=== PATIENT | female | born 1955 | race Caucasian/White ===

== ENCOUNTER → 2018-05-03 08:27 | Outpatient (CLI) | payer OTHER, MEDICAID, SELFPAY ==
[2018-05-03 08:46] LABS: Bacteria Urine None Seen; RBC Urine None Seen (0-5/HPF); WBC Urine None Seen (0-5/HPF)
[2018-05-03 09:36] LABS: Add Manual Diff / Slide Review NO; Basophils Percent Auto 1.1 % (0-2); Hematocrit 27.3 % (36-46); Hemoglobin 9.5 g/dL (12.0-16.0); Lymphocytes Percent Auto 18.6 % (25-40); Mean Corpuscular HGB Conc 34.7 % (30-36); Mean Corpuscular Volume 89.4 fL (80-100); Monocytes Percent Auto 8.1 % (3-14); Neutrophils Absolute Auto 3500 /uL (3000-5900); Neutrophils Percent Auto 67.2 % (50-75); Platelet Count 278 X10^3/uL (150-400); Red Blood Cell Count 3.05 X10^6/uL (4.0-5.2); Red Cell Distribution Width 12.9 % (11.6-14.8); White Blood Cell Count 5.1 X10^3/uL (4.5-11.0)
[2018-05-03 09:37] LABS: Appearance Urine UA CLEAR; Bilirubin Urine UA NEGATIVE (NEGATIVE); Color Urine UA YELLOW; Glucose Urine UA NEGATIVE (Normal); Ketones Urine UA NEGATIVE (NEGATIVE); Leukocyte Esterase Urine UA NEGATIVE (NEGATIVE); Nitrite Urine UA Negative (Negative); Occult Blood Urine UA NEGATIVE (Negative); Protein Urine UA 1+ (Negative); Specific Gravity Urine UA <=1.005 (1.000-1.035); Urobilinogen Urine UA 0.2 E.U./dL (0.2)
[2018-05-03 09:41] LABS: Culture Indicated Urine Cult Not Indicated; Urine Comments Microscopic Normal
[2018-05-03 09:45] LABS: Alanine Aminotransferase 30 IU/L (9-52); Albumin 3.7 g/dL (3.5-5.0); Albumin Globulin Ratio 1.4 (1.0-2.8); Alkaline Phosphatase 82 U/L (38-126); Aspartate Aminotransferase 25 IU/L (14-36); BUN Creatinine Ratio 35.7 (6-22); Bilirubin Total 0.4 mg/dL (0.2-1.3); Blood Urea Nitrogen 50 mg/dL (7-17); Calcium 9.5 mg/dL (8.4-10.2); Carbon Dioxide 24 mmol/L (22-32); Chloride 107 mmol/L (98-107); Estimated Glomerular Filt Rate 38.2 mL/min (>60); Globulin 2.6 g/dL (1.7-4.1); Glucose 101 mg/dL (80-110); HEMOLYSIS < 15 (0-50); Sodium 139 mmol/L (137-145); Total Protein 6.3 g/dL (6.3-8.2)
[2018-05-03 14:49] LABS: Creatinine Urine Random 37.7 mg/dL; Protein (Total) Urine Random 59 mg/dL (0-12); Protein Creatinine Ratio Urine 1.56 GRAM/24H
== END ==
PROVIDERS: PCP Family Medicine; Visit Provider Specialist
DX: R80.9 Proteinuria, unspecified (principal); D64.9 Anemia, unspecified; N18.3 Chronic kidney disease, stage 3 (moderate); I10 Essential (primary) hypertension
CPT/HCPCS: 36415; 80053; 81001; 82570; 84156; 85025

== ENCOUNTER → 2018-05-31 08:06 | Outpatient (CLI) | payer OTHER, MEDICAID, SELFPAY ==
[2018-05-31 08:13] LABS: Bacteria Urine None Seen; RBC Urine None Seen (0-5/HPF); WBC Urine None Seen (0-5/HPF)
[2018-05-31 09:08] LABS: Add Manual Diff / Slide Review NO; Basophils Percent Auto 1.1 % (0-2); Hematocrit 27.6 % (36-46); Hemoglobin 9.4 g/dL (12.0-16.0); Mean Corpuscular HGB Conc 33.9 % (30-36); Mean Corpuscular Hemoglobin 30.5 PG (26-34); Mean Corpuscular Volume 89.9 fL (80-100); Monocytes Percent Auto 7.1 % (3-14); Neutrophils Absolute Auto 2900 /uL (3000-5900); Neutrophils Percent Auto 68.8 % (50-75); Platelet Count 278 X10^3/uL (150-400); Red Blood Cell Count 3.07 X10^6/uL (4.0-5.2); White Blood Cell Count 4.2 X10^3/uL (4.5-11.0)
[2018-05-31 09:10] LABS: Appearance Urine UA CLEAR; Bilirubin Urine UA NEGATIVE (NEGATIVE); Color Urine UA YELLOW; Glucose Urine UA NEGATIVE (Normal); Ketones Urine UA NEGATIVE (NEGATIVE); Leukocyte Esterase Urine UA TRACE (NEGATIVE); Nitrite Urine UA NEGATIVE (Negative); Occult Blood Urine UA TRACE-LYSED (Negative); Protein Urine UA 2+ (Negative); Specific Gravity Urine UA 1.015 (1.000-1.035); Urobilinogen Urine UA 0.2 E.U./dL (0.2)
[2018-05-31 09:16] LABS: Culture Indicated Urine Cult Not Indicated; Urine Comments Microscopic Normal
[2018-05-31 09:25] LABS: Alanine Aminotransferase 28 IU/L (9-52); Albumin Globulin Ratio 1.5 (1.0-2.8); Alkaline Phosphatase 67 U/L (38-126); Aspartate Aminotransferase 24 IU/L (14-36); BUN Creatinine Ratio 32.7 (6-22); Bilirubin Total 0.4 mg/dL (0.2-1.3); Blood Urea Nitrogen 36 mg/dL (7-17); Calcium 9.8 mg/dL (8.4-10.2); Carbon Dioxide 26 mmol/L (22-32); Chloride 107 mmol/L (98-107); Estimated Glomerular Filt Rate 50.5 mL/min (>60); Globulin 2.6 g/dL (1.7-4.1); Glucose 96 mg/dL (80-110); HEMOLYSIS < 15 (0-50); Potassium 4.6 mmol/L (3.4-5.1); Sodium 142 mmol/L (137-145); Total Protein 6.6 g/dL (6.3-8.2)
[2018-05-31 09:30] LABS: HEMOLYSIS < 15 (0-50); Iron 78 ug/dL (37-170)
[2018-05-31 09:34] LABS: Creatinine Urine Random 47.8 mg/dL; Protein (Total) Urine Random 71 mg/dL (0-12); Protein Creatinine Ratio Urine 1.48 GRAM/24H
[2018-05-31 09:42] LABS: Percent Iron Saturation 32 % (15-50); Total Iron Binding Capacity 242 ug/dL (265-497); Transferrin 197 mg/dL (206-381)
[2018-05-31 10:24] LABS: Folate 11.8 ng/mL (2.76-20.0); Vitamin B12 473 pg/mL (239-931)
== END ==
PROVIDERS: Family Provider Family Medicine; PCP Family Medicine; Visit Provider Specialist
DX: N03.2 Chronic nephritic syndrome with diffuse membranous glomerulonephritis (principal); R80.9 Proteinuria, unspecified; N18.9 Chronic kidney disease, unspecified; D63.1 Anemia in chronic kidney disease; N39.0 Urinary tract infection, site not specified
CPT/HCPCS: 36415; 80053; 81001; 82570; 82607; 82728; 82746; 83540; 83550; 84156; 85025

== ENCOUNTER → 2018-08-02 08:06 | Outpatient (CLI) | payer OTHER, MEDICAID, SELFPAY ==
[2018-08-02 08:36] LABS: Bacteria Urine None Seen; RBC Urine None Seen (0-5/HPF); WBC Urine None Seen (0-5/HPF)
[2018-08-02 09:08] LABS: Add Manual Diff / Slide Review NO; Basophils Percent Auto 0.8 % (0-2); Eosinophils Percent Auto 4.5 % (2-4); Hematocrit 30.3 % (36-46); Lymphocytes Percent Auto 14.6 % (25-40); Mean Corpuscular HGB Conc 33.1 % (30-36); Mean Corpuscular Hemoglobin 30.4 PG (26-34); Mean Corpuscular Volume 91.8 fL (80-100); Monocytes Percent Auto 4.3 % (3-14); Neutrophils Absolute Auto 4200 /uL (1500-7000); Neutrophils Percent Auto 75.8 % (50-75); Platelet Count 278 X10^3/uL (150-400); Red Cell Distribution Width 13.7 % (11.6-14.8); White Blood Cell Count 5.5 X10^3/uL (4.5-11.0)
[2018-08-02 09:14] LABS: Appearance Urine UA CLEAR; Bilirubin Urine UA NEGATIVE (NEGATIVE); Color Urine UA YELLOW; Glucose Urine UA NEGATIVE (Normal); Ketones Urine UA NEGATIVE (NEGATIVE); Leukocyte Esterase Urine UA NEGATIVE (NEGATIVE); Nitrite Urine UA NEGATIVE (Negative); Occult Blood Urine UA TRACE-LYSED (Negative); Protein Urine UA 1+ (Negative); Specific Gravity Urine UA 1.015 (1.000-1.035); Urobilinogen Urine UA 0.2 E.U./dL (0.2)
[2018-08-02 09:38] LABS: Culture Indicated Urine Cult Not Indicated
[2018-08-02 09:47] LABS: Alanine Aminotransferase 32 IU/L (9-52); Albumin 3.7 g/dL (3.5-5.0); Albumin Globulin Ratio 1.5 (1.0-2.8); Alkaline Phosphatase 82 U/L (38-126); Aspartate Aminotransferase 29 IU/L (14-36); BUN Creatinine Ratio 31.1 (6-22); Bilirubin Total 0.2 mg/dL (0.2-1.3); Blood Urea Nitrogen 28 mg/dL (7-17); Calcium 9.4 mg/dL (8.4-10.2); Carbon Dioxide 24 mmol/L (22-32); Chloride 108 mmol/L (98-107); Estimated Glomerular Filt Rate > 60.0 mL/min (>60); Globulin 2.5 g/dL (1.7-4.1); Glucose 103 mg/dL (80-110); HEMOLYSIS < 15 (0-50); Potassium 4.6 mmol/L (3.4-5.1); Sodium 140 mmol/L (137-145); Total Protein 6.2 g/dL (6.3-8.2)
[2018-08-02 10:02] LABS: Creatinine Urine Random 39.5 mg/dL; Protein (Total) Urine Random 62 mg/dL (0-12); Protein Creatinine Ratio Urine 1.56 GRAM/24H
== END ==
PROVIDERS: Family Provider Family Medicine; PCP Family Medicine; Visit Provider Specialist
DX: N18.3 Chronic kidney disease, stage 3 (moderate) (principal); D64.9 Anemia, unspecified; I10 Essential (primary) hypertension; R80.9 Proteinuria, unspecified
CPT/HCPCS: 36415; 80053; 81001; 82570; 84156; 85025

== ENCOUNTER → 2018-08-30 11:26 | Outpatient (CLI) | payer OTHER, MEDICAID, SELFPAY ==
--- NOTE | 2018-08-30 | DI.MG.S_ITS ---
BILATERAL DIGITAL SCREENING MAMMOGRAM 3D/2D WITH CAD: 08/30/2018 CLINICAL: Routine screening. Family history of breast cancer. Comparison is made to exams dated: 08/26/2013 mammogram, 07/23/2011 mammogram, and 07/02/2010 mammogram - [facility]. The tissue of both breasts is predominantly fatty. Current study was also evaluated with a Computer Aided Detection (CAD) system. There are benign calcifications in both breasts. No significant masses, calcifications, or other findings are seen in either breast. There has been no significant interval change. IMPRESSION: There is no mammographic evidence of malignancy. A 1 year screening mammogram is recommended. This exam was interpreted at Station ID: [id number]. NOTE: For mammograms, a report in lay terms will be sent to the patient. Approximately 15% of breast malignancies will not be visualized mammographically. In the management of a palpable breast mass, a negative mammogram must not discourage biopsy of a clinically suspicious lesion. Electronically Signed By: Diogenes cordon/salvador:08/30/2018 14:26:55 letter sent: Normal Exam ACR BI-RADS Category 2: Benign Finding(s) 3342F
== END ==
PROVIDERS: PCP Family Medicine; Visit Provider Family Medicine
DX: Z12.31 Encounter for screening mammogram for malignant neoplasm of breast (principal); Z80.3 Family history of malignant neoplasm of breast
CPT/HCPCS: 77063; 77067

== ENCOUNTER → 2018-10-14 08:21 | Outpatient (CLI) | payer OTHER, MEDICAID, SELFPAY ==
[2018-10-14 08:41] LABS: Bacteria Urine None Seen; WBC Urine None Seen (0-5/HPF)
[2018-10-14 09:54] LABS: Add Manual Diff / Slide Review NO; Basophils Absolute Auto 100 /uL (0-100); Basophils Percent Auto 1.5 % (0-2); Eosinophils Absolute Auto 400 /uL (0-450); Hemoglobin 10.1 g/dL (12.0-16.0); Lymphocytes Absolute Auto 1200 /uL (1100-4500); Lymphocytes Percent Auto 19.4 % (25-40); Mean Corpuscular HGB Conc 33.7 % (30-36); Mean Corpuscular Hemoglobin 30.3 PG (26-34); Mean Corpuscular Volume 89.9 fL (80-100); Monocytes Absolute Auto 300 /uL (0-900); Neutrophils Absolute Auto 4000 /uL (1500-7000); Neutrophils Percent Auto 68.1 % (50-75); Platelet Count 367 X10^3/uL (150-400); Red Blood Cell Count 3.34 X10^6/uL (4.0-5.2); Red Cell Distribution Width 12.8 % (11.6-14.8); White Blood Cell Count 5.9 X10^3/uL (4.5-11.0)
[2018-10-14 10:11] LABS: Appearance Urine UA CLEAR; Bilirubin Urine UA NEGATIVE (NEGATIVE); Color Urine UA YELLOW; Glucose Urine UA NEGATIVE (Negative); Ketones Urine UA NEGATIVE (NEGATIVE); Leukocyte Esterase Urine UA NEGATIVE (NEGATIVE); Nitrite Urine UA NEGATIVE (Negative); Occult Blood Urine UA TRACE-INTACT (Negative); Protein Urine UA TRACE (Negative); Urobilinogen Urine UA 0.2 E.U./dL (0.2); pH Urine UA 5.5 (4.5-8.0)
[2018-10-14 10:16] LABS: Alanine Aminotransferase 66 IU/L (9-52); Albumin 3.6 g/dL (3.5-5.0); Albumin Globulin Ratio 1.5 (1.0-2.8); Alkaline Phosphatase 136 U/L (38-126); Aspartate Aminotransferase 30 IU/L (14-36); Bilirubin Total 0.2 mg/dL (0.2-1.3); Blood Urea Nitrogen 30 mg/dL (7-17); Carbon Dioxide 25 mmol/L (22-32); Chloride 104 mmol/L (98-107); Estimated Glomerular Filt Rate 56.2 mL/min (>60); Globulin 2.4 g/dL (1.7-4.1); Glucose 127 mg/dL (80-110); HEMOLYSIS < 15 (0-50); Potassium 4.6 mmol/L (3.4-5.1); Sodium 137 mmol/L (137-145)
[2018-10-14 10:17] LABS: Amorphous Sediment Urine 1+; Culture Indicated Urine Cult Not Indicated; RBC Urine 0-1/HPF (0-5/HPF)
[2018-10-14 10:36] LABS: Creatinine Urine Random 42.2 mg/dL; Protein (Total) Urine Random 50 mg/dL (0-12); Protein Creatinine Ratio Urine 1.18 GRAM/24H
== END ==
PROVIDERS: PCP Family Medicine; Visit Provider Specialist
DX: N18.3 Chronic kidney disease, stage 3 (moderate) (principal); I10 Essential (primary) hypertension; R80.9 Proteinuria, unspecified; D64.9 Anemia, unspecified
CPT/HCPCS: 36415; 80053; 81001; 82570; 84156; 85025

== ENCOUNTER → 2018-11-08 08:01 | Outpatient (CLI) | payer OTHER, MEDICAID, SELFPAY ==
--- NOTE | 2018-11-08 | DI.MRI.S_ITS ---
PROCEDURE: MR KNEE LT WO CON INDICATIONS: Unilateral primary osteoarthritis, left knee TECHNIQUE: Noncontrast sagittal PD fast spin echo and T2 fast spin echo with fat saturation, sagittal 3-D FLASH with fat saturation; coronal T1 spin echo and PD fast spin echo with fat saturation, and axial PD fast spin echo with fat saturation through the knee. COMPARISON: [facility], MR, KNEE WITHOUT CONTRAST, 02/15/2014, 10:36. FINDINGS: Image quality: Excellent. Menisci: There is medial and lateral extrusion. There is complex tear of the medial meniscus involving the body and posterior horn extending into the root ligament. There are several meniscal cyst adjacent to the posterior horn of the medial meniscus. There is degenerative tear of the lateral meniscus. Cruciate ligaments: The anterior cruciate ligament is torn, likely chronic. The posterior cruciate ligaments appears thickened but intact. Medial structures: The medial collateral ligament appears intact. The posterior oblique ligament, semimembranosus tendon insertions, oblique popliteal ligament, and meniscocapsular junction appear intact. Visualized portions of the pes anserinus tendons appear normal. No abnormal bursal fluid. Lateral structures: The lateral collateral ligament, long and short heads of the biceps femoris tendon appear intact. The popliteus tendon appears normal; the popliteofibular ligament appears intact. The posterosuperior and anteroinferior popliteomeniscal fascicles appear intact. The arcuate and fabellofibular ligaments appear intact, on either side of the lateral inferior geniculate artery. Iliotibial band appears normal. Anterior structures: The quadriceps and patellar tendons appear intact. Patellar alignment is normal. No femoral trochlear dysplasia or ventral trochlear prominence. No edema in the infrapatellar fat pad. Bones and cartilage: No bone marrow contusions or fractures. Severe tricompartmental cartilage loss and degeneration. There is marrow edema in the medial femoral condyle and medial tibial plateau likely sequelae of [id number]. Joint space: There is small knee joint effusion. A moderate sized, multilocular complex synovial cyst is noted in the posterior knee joint. Normal appearing synovial plicae are incidentally noted. IMPRESSION: 1. 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 2. Complex tear of the medial meniscus involving the body and posterior horn extending to the root ligament. 3. Degenerative tear of the lateral meniscus. 4. Severe tricompartmental cartilage loss. 5. Complex, multilocular synovial cyst posterior to the knee joint. Dictated by: Donna Sainz M.D. on 11/08/2018 at 9:55 Approved by: Donna Sainz M.D. on 11/08/2018 at 13:25
== END ==
PROVIDERS: PCP Family Medicine; Visit Provider Orthopaedic Surgery
DX: M17.12 Unilateral primary osteoarthritis, left knee (principal); S83.232A Complex tear of medial meniscus, current injury, left knee, initial encounter; S83.282A Other tear of lateral meniscus, current injury, left knee, initial encounter; M71.22 Synovial cyst of popliteal space [Baker], left knee
CPT/HCPCS: 73721

== ENCOUNTER → 2018-12-06 10:37 | Outpatient (CLI) | payer OTHER, MEDICAID, SELFPAY ==
[2018-12-06 10:46] LABS: Bacteria Urine None Seen; RBC Urine None Seen (0-5/HPF); WBC Urine None Seen (0-5/HPF)
[2018-12-06 10:56] LABS: Appearance Urine UA CLEAR; Bilirubin Urine UA NEGATIVE (NEGATIVE); Color Urine UA YELLOW; Glucose Urine UA NEGATIVE (Negative); Ketones Urine UA NEGATIVE (NEGATIVE); Leukocyte Esterase Urine UA NEGATIVE (NEGATIVE); Nitrite Urine UA NEGATIVE (Negative); Occult Blood Urine UA NEGATIVE (Negative); Protein Urine UA NEGATIVE (Negative); Specific Gravity Urine UA <=1.005 (1.000-1.035); Urobilinogen Urine UA 0.2 E.U./dL (0.2)
[2018-12-06 11:01] LABS: Culture Indicated Urine Cult Not Indicated; Urine Comments Microscopic Normal
[2018-12-06 11:02] LABS: Creatinine Urine Random 26.2 mg/dL; Protein (Total) Urine Random 28 mg/dL (0-12); Protein Creatinine Ratio Urine 1.06 GRAM/24H
[2018-12-06 11:12] LABS: Add Manual Diff / Slide Review NO; Basophils Absolute Auto 100 /uL (0-100); Basophils Percent Auto 1.4 % (0-2); Eosinophils Absolute Auto 300 /uL (0-450); Eosinophils Percent Auto 5.1 % (2-4); Hematocrit 31.5 % (36-46); Hemoglobin 10.6 g/dL (12.0-16.0); Lymphocytes Absolute Auto 1500 /uL (1100-4500); Lymphocytes Percent Auto 26.9 % (25-40); Mean Corpuscular HGB Conc 33.6 % (30-36); Mean Corpuscular Hemoglobin 30.2 PG (26-34); Mean Corpuscular Volume 90.1 fL (80-100); Monocytes Absolute Auto 300 /uL (0-900); Monocytes Percent Auto 4.9 % (3-14); Neutrophils Absolute Auto 3400 /uL (1500-7000); Neutrophils Percent Auto 61.7 % (50-75); Platelet Count 327 X10^3/uL (150-400); Red Cell Distribution Width 13.5 % (11.6-14.8); White Blood Cell Count 5.5 X10^3/uL (4.5-11.0)
[2018-12-06 11:38] LABS: Alanine Aminotransferase 29 IU/L (9-52); Albumin 4.1 g/dL (3.5-5.0); Albumin Globulin Ratio 1.8 (1.0-2.8); Alkaline Phosphatase 83 U/L (38-126); Aspartate Aminotransferase 22 IU/L (14-36); BUN Creatinine Ratio 35.6 (6-22); Bilirubin Total 0.3 mg/dL (0.2-1.3); Blood Urea Nitrogen 32 mg/dL (7-17); Calcium 9.8 mg/dL (8.4-10.2); Carbon Dioxide 23 mmol/L (22-32); Chloride 104 mmol/L (98-107); Estimated Glomerular Filt Rate > 60.0 mL/min (>60); Globulin 2.3 g/dL (1.7-4.1); Glucose 91 mg/dL (80-110); HEMOLYSIS < 15 (0-50); Potassium 4.4 mmol/L (3.4-5.1); Sodium 136 mmol/L (137-145); Total Protein 6.4 g/dL (6.3-8.2)
== END ==
PROVIDERS: PCP Family Medicine; Visit Provider Specialist
DX: N18.3 Chronic kidney disease, stage 3 (moderate) (principal); I12.9 Hypertensive chronic kidney disease with stage 1 through stage 4 chronic kidney disease, or unspecified chronic kidney disease; R80.9 Proteinuria, unspecified; D64.9 Anemia, unspecified
CPT/HCPCS: 36415; 80053; 81001; 82570; 84156; 85025

== ENCOUNTER → 2019-01-03 13:48 | Outpatient (CLI) | payer OTHER, MEDICAID, SELFPAY ==
--- NOTE | 2019-01-03 | DI.MRI.S_ITS ---
PROCEDURE: MR KNEE LT WO CON INDICATIONS: Unilateral primary osteoarthritis, left knee TECHNIQUE: Lujan-Nephew Visionaire protocol was performed. Noncontrast sagittal PD fast spin echo and T2 fast spin echo with fat saturation, sagittal 3-D FLASH with fat saturation; coronal T1 spin echo and PD fast spin echo with fat saturation, and axial PD fast spin echo with fat saturation through the knee. COMPARISON: [facility], MR, MR KNEE LT WO CON, 11/08/2018, 8:28. FINDINGS: Image quality: Excellent. Menisci: Complex lateral meniscal tear involving the body and posterior horn with partial extrusion is seen. There is marked truncation of the free margin. No interval change since 11/08/18 Medial meniscal tear involving the body and posterior horn is also noted, with 1.3 cm posterior parameniscal cyst seen on image 14 series 7. This is slightly more conspicuous since the prior study. There is near-complete extrusion of the medial meniscus as before. Cruciate ligaments: Anterior cruciate ligament is not seen in keeping with complete rupture. is a likely chronic finding. The posterior cruciate ligament appears intact. Medial structures: The medial collateral ligament appears intact. There is adjacent soft tissue edema which is presumably reactive to medial meniscal pathology. The posterior oblique ligament, semimembranosus tendon insertions, oblique popliteal ligament, and meniscocapsular junction appear intact. Visualized portions of the pes anserinus tendons appear intact although there is adjacent fluid raise the possibility of pes anserinus bursitis, which has developed since the prior study. Lateral structures: The lateral collateral ligament, long and short heads of the biceps femoris tendon appear intact. The popliteus tendon appears normal; the popliteofibular ligament appears intact. The posterosuperior and anteroinferior popliteomeniscal fascicles appear intact. The arcuate and fabellofibular ligaments appear intact, on either side of the lateral inferior geniculate artery. Iliotibial band appears normal. Anterior structures: Prepatellar and superficial infrapatellar subcutaneous edema/fluid. The quadriceps and patellar tendons appear intact. Patellar alignment is normal. No femoral trochlear dysplasia or ventral trochlear prominence. No edema in the infrapatellar fat pad. Bones and cartilage: No focal marrow contusion or discrete low signal fracture line. Within the medial compartment, full-thickness loss of femoral and tibial articular cartilage with subchondral marrow edema and sclerosis Within the lateral compartment, there is a full-thickness femoral and tibial articular cartilage loss. Within the patellofemoral compartment, diffuse partial-thickness loss of the cartilage involving the lateral patellar facet and lateral femoral trochlear. Joint space: Small joint effusion. Redemonstration of prominent popliteal ganglion and/or synovial cysts with multiloculated appearance. Possible debris or small loose bodies seen in the suprapatellar recess (image 121 series 8). Alternatively this could represent reactive synovitis. IMPRESSION: Severe left knee joint degeneration with full-thickness articular cartilage loss as above. Prominent subchondral marrow signal changes including cyst formation and edema. 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 Poorly defined medial and lateral meniscal tears, grossly unchanged although a posteromedial parameniscal cyst appears slightly more conspicuous Small joint effusion with reactive synovitis versus debris/small loose bodies. Dictated by: Sarthak Ortiz M.D. on 01/03/2019 at 17:16 Approved by: Sarthak Ortiz M.D. on 01/03/2019 at 17:28
== END ==
PROVIDERS: PCP Family Medicine; Visit Provider Orthopaedic Surgery
DX: M17.12 Unilateral primary osteoarthritis, left knee (principal); S83.272A Complex tear of lateral meniscus, current injury, left knee, initial encounter; S83.242A Other tear of medial meniscus, current injury, left knee, initial encounter; S83.512A Sprain of anterior cruciate ligament of left knee, initial encounter; M25.462 Effusion, left knee
CPT/HCPCS: 73721

== ENCOUNTER 2019-03-22 08:40 | Inpatient (IN) | payer OTHER, MEDICAID, SELFPAY ==
[2019-03-08 13:57] VITALS: BMI 36.1
[2019-03-22] VITALS (14 sets, daily range): BP systolic 99–161; BP diastolic 58–89; PULSE 67–78; RESP 13–18; TEMP 35.7–36.8; O2SAT 93–100; BMI 35.1
--- NOTE | 2019-03-22 10:00 | DI.RAD.S_ITS ---
PROCEDURE: XR KNEE LT 1TO2V INDICATIONS: post op left TKA TECHNIQUE: 2 view(s) of the knee acquired. COMPARISON: None. FINDINGS: Bones: Patient is status post knee joint arthroplasty. Hardware components are in expected positions. Visualized bony structures are intact. Soft tissues: Overlying postoperative changes are noted. IMPRESSION: Postop changes from left total knee arthroplasty with anatomic left knee alignment. Dictated by: Jose F Serrano M.D. on 03/22/2019 at 15:05 Approved by: Jose F Serrano M.D. on 03/22/2019 at 15:06
[2019-03-22] MEDS: PREGABALIN 75 MG CAPSULE PO (10:29)
[2019-03-22] MEDS: LACTATED RINGERS 1,000 ML 42 ML IV ×2 (10:29→14:18)
[2019-03-22] MEDS: CELECOXIB 200 MG CAPSULE PO (10:29)
[2019-03-22] MEDS: ACETAMINOPHEN 325 MG TABLET 975 MG PO ×2 (10:30→21:24)
[2019-03-22] MEDS: VANCOMYCIN 1,000 MG/200 ML PIGGYBACK 200 MG IV (10:37)
--- NOTE | 2019-03-22 11:44 | PM.PREOP ---
Pre-operative Note Interval Note History & Physical reviewed/Exam performed by Physician: Yes Changes to H&P: No
--- NOTE | 2019-03-22 11:44 | PM.OP.1 ---
Operative Date/Time/Diagnoses Date of procedure: 03/22/19 Time of procedure: 12:44 Pre-op diagnosis: left knee OA Post-op diagnosis: same Procedure & Clinicians Procedure: Left total knee arthroplasty Same procedure as scheduled: Yes Indications: The patient has had progressively worsening left knee pain with radiographic changes consistent with arthritis. Non-operative management has failed and the patient has requested total knee replacement. The risks, benefits and alternatives to surgery were discussed with the patient prior to proceeding. Risks discussed included, but were not limited to, failure to relieve pain, stiffness, infection, nerve damage, deep venous thrombosis, pulmonary embolism, stroke, coma, heart attack, permanent paralysis and , as well as the potential need for eventual revision of the prosthetic. Surgeon: Anai Lujan Stud Master/Mistress: Ellen Talley Anesthesia Type: General and Spinal Operative Notes Findings: Severe left knee osteoarthritis, good stability Closure Type: primary Specimen(s): none sent Prosthetic devices, grafts, tissues, transplants, or devices: Lujan and Nephew Journey BCS 2 size 5 femur, size 4 tibia, +10 poly, patella 35 by 9 Applied: drain(s) Estimated Blood Loss (mL): 250 Blood products transfused: none Tourniquet time (min): 73 Procedure in detail: The patient was seen in the pre-operative area, where the patient identified the left knee as the operative site and this was marked with my initials. The patient received pre-operative antibiotics, and was taken to the operating room and placed on the operative table in the supine position. After satisfactory anesthesia, a multimedia educational specialist out was performed. The left leg was encircled with a tourniquet about the proximal thigh, and the leg was prepared from the toes to the tourniquet with ChloroPrep in the usual fashion and draped through sterile drapes. The leg was elevated and exsanguinated with Eschmark bandage and the tourniquet inflated to [250] mmHg pressure. The knee was approached through an approximately 18 cm incision centered over the patella and carried into the knee through a medial parapatellar arthrotomy. A portion of the medial and lateral meniscus was resected. Soft tissue was carefully mobilized around the patella the patella was measured with a caliper. Bone was resected from the patella and the patellar height was reconstituted with up an appropriate sized patellar component. A cover was then placed on the patella. A small amount of additional medial and lateral meniscus was resected. The visionare guide fit well to the distal femur. It looked like an appropriate distal femoral cut and the cut was made without difficulty. The rotation was assessed and the appropriate size femoral guide was placed on the distal femur and finishing cuts were made. There is no evidence of notching. The anterior, posterior and chamfer cuts were then made. The posterior osteophytes and soft tissues were then removed. The posterior capsule was injected with part of a mixture of 60 ml 0.25% Marcaine mixed with 20 ml Exparel for post operative pain control. The remainder of this mixture was injected into the capsule and subcutaneous tissues during cement curing. The tibia was prepared and the visionaire guide fit well to the distal tibia. The rotation was assessed. The patient was placed in extension residual medial and lateral meniscus as well as any residual bone was carefully resected. [No] additional tibia was resected. Hemostasis was achieved especially posteriorly. Additional local was injected into the posterior capsule. The extension gap was assessed and additional releases for gap balancing were performed as necessary. It was checked with the gap filler mixer. The femoral component was trial was placed and the notch was finished. Trial tibial and femoral components were then placed and the knee placed through a range of motion. Range of motion was [0-130], with good stability throughout the range. The trials were then removed, and the tibia was finished. The bone was prepared with pulsatile lavage, and dried with a sponge. Cement was applied and the final prosthetics placed. Excess cement was removed during and after cement curing. A brief Betadine soak was performed. After confirming there was no extruded cement posteriorly, the final tibial insert was placed. The knee was copiously irrigated and the tourniquet deflated. Hemostasis was obtained with the Bovie cautery. A drain was placed and brought out superolaterally. The capsule was closed with interrupted Vicryl suture. The subcutaneous layer was closed with barbed sutures, and the skin with a running 3-0 V-Lock suture and Surgical glue. An Aquacel Ag dressing was applied and the patient was taken to recovery having tolerated the procedure well. Complications: none Condition: stable Disposition: Acute Care Plan for aftercare: The patient will be maintained on a standard total knee replacement protocol with weight bearing as tolerated. The patient will receive Lovenox and sequential compression devices for DVT prophylaxis. The patient will be discharged home when safe for the home environment.
[2019-03-22] MEDS: CEFAZOLIN 2 GM/100 ML FROZ.PIGGY IV ×2 (12:45→19:39)
--- NOTE | 2019-03-22 13:17 | SUR.OPER ---
Supine on padded OR bed. Pillow under head, arms secured on padded armboards <90 degree abduction. Safety belt across torso. Non-operative leg secured with tape over blanket over lower leg. Operative leg secured in DeMayo/Yon positioner. Foam padded brace at thigh of operative leg.
[2019-03-22] MEDS: BUPIVACAINE 0.25% W/ EPI 30 ML VIAL 60 ML INJ (13:23)
[2019-03-22] MEDS: BUPIVACAINE LIPOSOME 266 MG/20 ML VIAL INJ (13:23)
[2019-03-22] MEDS: TRANEXAMIC ACID 1,000 MG VIAL 2000 MG INJ ×2 (13:24→14:33)
[2019-03-22] MEDS: fentaNYL 100 MCG/2 ML INJ 50 MCG IV (15:23)
[2019-03-22] MEDS: LISINOPRIL 10 MG TABLET PO (16:46)
[2019-03-22] MEDS: LACTATED RINGERS 1,000 ML 125 ML IV (16:55)
[2019-03-22] MEDS: POLYETHYLENE GLYCOL 3350 17 GM POWD.PACK PO (16:58)
[2019-03-22] MEDS: IBUPROFEN 600 MG TABLET PO (16:58)
[2019-03-22] MEDS: OXYCODONE IR 5 MG TABLET PO (17:14)
[2019-03-22] MEDS: ONDANSETRON 4 MG/2 ML INJ IV (20:38)
[2019-03-22] MEDS: ASPIRIN EC 81 MG TABLET PO (21:23)
[2019-03-22] MEDS: DOCUSATE 100 MG CAPSULE PO (21:23)
[2019-03-22] MEDS: CITALOPRAM 20 MG TABLET PO (21:25)
[2019-03-22] MEDS: ATORVASTATIN 10 MG TABLET PO (21:25)
--- NOTE | 2019-03-22 22:28 | PC.NURSE ---
Pt is A and O x 4, VSS. She states her pain is 6/10 and gets good relief with 5 mg oxycodone po and sked APAP. She arrived on unit at 1633 and at approx 2200 she attempted to void on BSC. Her bladder scan was 303 mLs. Pt advised she needs to try again before 0030. She is drinking fluids. She moved both extremities well and has + CMS. She was able to pull herself up from the bed with the FWW and stand independently. She has had no output from her hemovac this shift which was unclamped at approx 1800. Her dressing is C/D/I.
[2019-03-23] VITALS: BP 124/89; PULSE 65; RESP 18; TEMP 36.4; O2SAT 98
[2019-03-23] MEDS: LACTATED RINGERS 1,000 ML 125 ML IV (00:27)
[2019-03-23] MEDS: OXYCODONE IR 5 MG TABLET PO ×5 (00:27→15:55)
[2019-03-23] MEDS: CEFAZOLIN 2 GM/100 ML FROZ.PIGGY IV (03:41)
[2019-03-23 03:44] VITALS: BP 120/73; PULSE 58; RESP 16; TEMP 36.6; O2SAT 98
[2019-03-23 06:20] LABS: Hematocrit 28.9 % (36-46); Hemoglobin 9.7 g/dL (12.0-16.0)
[2019-03-23 07:50] VITALS: BP 111/60; PULSE 67; RESP 16; TEMP 36.8; O2SAT 100
[2019-03-23] MEDS: ACETAMINOPHEN 325 MG TABLET 975 MG PO ×2 (09:06→14:40)
[2019-03-23] MEDS: LISINOPRIL 10 MG TABLET PO (09:06)
[2019-03-23] MEDS: DOCUSATE 100 MG CAPSULE PO (09:06)
[2019-03-23] MEDS: POTASSIUM CHLORIDE 10 MEQ TAB 20 MEQ PO (09:07)
[2019-03-23] MEDS: ASPIRIN EC 81 MG TABLET PO (09:10)
[2019-03-23] MEDS: IBUPROFEN 600 MG TABLET PO ×2 (09:10→14:40)
--- NOTE | 2019-03-23 09:18 | P.DS_ITS ---
History of Present Illness Date Patient Seen: 03/23/19 Time Patient Seen: 09:16 Chief complaint: [id number] Narrative: Pain is mild. Denies fever chills. She did feel a little nauseous this morning. No vomiting. She has been up walking with physical therapy. She has assistance at home. Patient feels ready to go home today. Discharge Providers Date of admission: 03/22/19 08:40 Discharge Date: 03/23/19 Primary care physician: Yaya Lowery MD Consults: 03/22/19 10:00 Consult to Anesthesiology Routine Comment: Consulting Provider: Anesthesiologist Reason for consultation: Regional block for post operative pain control 03/22/19 16:04 Consult to Discharge Planning Routine Comment: Consult to Physical Therapy Evaluate & Treat Comment: Physician Instructions: postop TKA protocol Consult to Respiratory Therapy Evaluate & Treat Comment: Physician Instructions: Evaluate and treat Discharge provider: Miguel Ángel Coronel PA-C Summary Discharge Diagnosis: Left total knee arthroplasty secondary to severe left knee osteoarthritis Hospital Course: The patient has had progressively worsening left knee pain with radiographic changes consistent with arthritis. Non-operative management has f rachel and the patient has requested total knee replacement. The risks, benefits and alternatives to surgery were discussed with the patient prior to proceeding. Risks discussed included, but were not limited to, failure to relieve pain, stiffness, infection, nerve damage, deep venous thrombosis, pulmonary embolism, stroke, coma, heart attack, permanent paralysis and , as well as the potential need for eventual revision of the prosthetic. Surgeon: Anai Lujan Blind Slat Stapling Machine Operator: Ellen Talley Anesthesia Type: General and Spinal Operative Notes Findings: Severe left knee osteoarthritis, good stability Closure Type: primary Specimen(s): none sent Prosthetic devices, grafts, tissues, transplants, or devices: Lujan and Nephew Journey BCS 2 size 5 femur, size 4 tibia, +10 poly, patella 35 by 9 Applied: drain(s) Estimated Blood Loss (mL): 250 Blood products transfused: none Tourniquet time (min): 73 Patient admitted to the hospital for left total knee arthroplasty. Patient was consented to the same. Patient taken to the operating room underwent left total knee arthroplasty. Patient back in her room recovering well as in stable condition. Patient has been up with physical therapy. She feels ready to go home. She has assistance at home. Patient will be discharged today after physical therapy. Status at Discharge Cognitive/behavioral status at discharge: at baseline, oriented Functional status at discharge: uses cane/walker Overall status at discharge: patient is progressing back to baseline Time Spent with Patient Less than 30 minutes Exam Vital Signs (past 8 hours): - 03/23/19 03:44 03/23/19 07:50 Temperature 97.9 F 98.3 F Pulse Rate 58 L 67 Respiratory Rate 16 16 Blood Pressure 120/73 111/60 Pulse Oximetry 98 100 Oxygen Delivery Method Room Air Oxygen Flow Rate 0 Narrative Exam Narrative: Pleasant 63-year-old female resting comfortably in bedside chair. Patient no apparent distress. Left leg is warm and dry. Dressing clean, dry and intact. Motor function is intact distally. Sensation grossly intact to light touch. Objective Labs Result Diagrams: 03/23/19 05:40 Labs: Laboratory Results - last 24 hr 03/23/19 05:40 Hgb 9.7 L Hct 28.9 L Discharge Plan Discharge Plan Patient Disposition: Home Discharge comment: DC home today after PT Discharge Med Rec/Prescriptions Prescriptions: New hydroxyzine pamoate [Vistaril] 25 mg capsule 25 mg PO QID PRN (Reason: nausea) Qty: 14 RF: 0 Continued lisinopril 10 MG tablet 10 mg PO QDAY Qty: 0 RF: 0 atorvastatin 10 mg Tablet 10 mg PO BEDTIME RF: 0 potassium chloride 10 mEq Tablet Extended Release 20 meq PO DAILY RF: 0 citalopram 20 mg Tablet 20 mg PO BEDTIME RF: 0 ergocalciferol (vitamin D2) [Vitamin D2] 50,000 unit Capsule 1.25 mg PO QWEEK RF: 0 alprazolam [Xanax] 0.5 MG tablet 0.5 mg PO SEE INSTRUCTIONS PRN (Reason: Anxiety) RF: 0 levothyroxine 200 MCG tablet 175 mcg PO BEDTIME RF: 0 Follow up/Referrals: Anai Lujan MD [Physician] - (1 wk) Yaya Lowery MD [Primary Care Provider] - Provider Discharge Instructions Diet: Diet as Tolerated Activity: per [facility] Cold/Heat Therapy: Per [facility] Skin/Wound/Dressing Care Report to your healthcare provider any signs of infection, such as:: chills, fever, increased pain, unusual drainage and unusual redness Dressing: Keep clean and dry Visit Report/Discharge Packet Instructions: DI for Knee Replacement, DI for Constipation Discharge Data Primary Care Provider: Yaya Lowery Attending Provider: Anai Lujan Admit Date/Time: 03/22/19 08:40 Quality VTE Deep Vein Thrombosis/Pulmonary Embolism Present on Admission: No
--- NOTE | 2019-03-23 09:50 | PT.IIE ---
Current Diagnoses Bilateral primary osteoarthritis of knee (03/22/19) Surgery Performed Operation Date: 03/22/19 12:00 Actual Procedures p Total Knee Arthroplasty(Left) - Anai Lujan MD Surgical History (Last Updated 03/08/19 @ 14:20 by Rashida Stratton, RN) History of bilateral tubal ligation (Acute) Hx of arthroscopy of left knee (Acute ~2012) Hx of hernia repair (Acute) Hx of tonsillectomy (Acute) Medical History (Last Updated 03/08/19 @ 14:20 by Rashida Stratton RN) Anxiety (Acute) Easy bruisability (Acute) HLD (hyperlipidemia) (Acute) HTN (hypertension) (Acute) Hypokalemia (Acute) Hypothyroidism (Acute) 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 Able to make needs known. Mobility and Gait Pt states she is an independent ambulator at home and community without AD, but she was limping for couple weeks prior to sx due to pain. 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 Pt also drives. Activities of Daily Living and IADL's Independent for all ADLs and IADLs Social History Household Members family Living Arrangements House Number of Floors (Floors) One Floor Number of Stairs To Enter/Railing? 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 Her mother also lives next door. 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 Pt plans to have outpatient PT at [place] starting from 8/12 M2 PT-IP Current Condition Start: 03/22/19 16:56 Freq: NEEDED Status: Active Protocol: Document 03/23/19 08:20 HH (Rec: 03/23/19 09:49 [email or web address]) Physical Therapy Current Condition Current Condition Evaluation Date 03/23/19 Treatment Diagnosis L TKA, difficulty in walking Onset Date 03/22/19 Weight Bearing Status Weight Bearing Status Weight Bear as Tolerated M3 PT-IP Subjective Start: 03/22/19 16:56 Freq: NEEDED Status: Active Protocol: Document 03/23/19 08:20 (Rec: 03/23/19 09:49 [email or web address]) Subjective Physical Therapy Visit Type Type Initial Evaluation Visit Start Time 08:20 Visit Stop Time 08:50 Total Visit Minutes [address] Number of SAP BASIS Visits 0 Physical Therapy Visit Comments Patient Comments I used the BS with nursing staff assistance. Patient Goals To return home Therapy Pain Assessment Pain Present Pain Present Pain Reported Location Left Knee Intensity 4 Scale Used Numeric (1 - 10) Description Acute Pain Management Techniques Apply Cold Timing of Activity with Medications M4 PT-IP Mobility and Gait Start: 03/22/19 16:56 Freq: NEEDED Status: Active Protocol: Document 03/23/19 08:20 (Rec: 03/23/19 09:49 [email or web address]) PT-Bed Mobility Assessment Rolling Type of Rolling Roll to Left Level of Assist Independent Supine to Sit Supine to Sit Independent Bedrails Scooting Scooting to Edge of Bed Independent PT-Transfer Assessment Sit to and From Stand Sit to and from Stand Standby Assistance Use of Upper Extremities Equipment Transfer Assistive Device Gait Belt Front Wheeled Walker Orthotic/Prosthetic Devices or Brace: No Transfers Transfer Destination Bed Chair Transfer Technique Stand Step Pivot Transfer Ability Level of Assist Standby Assistance Use of Upper Extremities Comments Mobility Comments Pt was in bed upon assessment. She then sat up at EOB followed by standing up with a FWW. Pt was able to evenly WB on BLE but did c/o achy pain at her L thigh. Pt amb approx 150 ft with FWW and mild antaglic gait. There's mild extension thrust noted on L side during stance phase which implies insufficient eccentric control. Pt did c/o increase in soreness at L thigh at the end of session. Gait Assessment Gait Gait Assistance Required: Standby Assistance Distance (Feet) 150 Able to Maintain Weight Bearing Status Yes During Gait Assistive Devices Assistive Device Gait Belt Front Wheeled Walker Orthotic/Prosthetic Devices or Brace: No Gait Deviations General Gait Pattern Antalgic Decreased Stride Length Decreased Feet Clearance Factors Limiting Gait Function Factors Limiting Gait Function Decreased Activity Tolerance Decreased Strength Limited Range of Motion Pain Comments Gait Comments see mobility comment Stair Climbing Assessment Evaluation Level of Assist On Stairs Standby Assistance Devices Stair Climbing Assistive Devices Front Wheel Walker Left Railing Technique/Endurance Stair Climbing Direction Ascend and Descend Stair Climbing Technique Step to Step Number of Steps Climbed 1 Query Text: Stair Climbing Set # Repetitions (reps) 3 Comments Stair Climbing Comments used platform stool with grab bar on L side. PT-Balance Assessment Sitting Balance and Reactions Static Sitting Balance Ability Normal Dynamic Sitting Balance Ability Normal Standing Balance and Reactions Static Standing Balance Ability Good Dynamic Standing Balance Ability Good Device Used fWW M5 PT-IP Objective Assessments Start: 03/22/19 16:56 Freq: NEEDED Status: Active Protocol: Document 03/23/19 08:20 (Rec: 03/23/19 09:49 [email or web address]) Orientation Orientation/Cognition Level of Alertness Alert Orientation Name Age Birthday Month Date Year Day of Week Place Situation Language Function Ability No Deficits Noted Safety Awareness Understands Safety Issues Memory Description No Deficits Noted Gross Range of Motion Upper Extremity ROM Assessment Within Functional Limits Lower Extremity ROM Assessment Left Impaired Impairments 0 - 100 degrees Strength Upper Extremity Strength Assessment Within Functional Limits Lower Extremity Strength Assessment Left Impaired Knee 3/5 Coordination Assessment Gross Coordination Gross Coordination WNL Sensation Assessment Sensation Gross Sensation WNL Muscle Tone Muscle Tone WNL Yes M6 PT-IP Treatment Start: 03/22/19 16:56 Freq: NEEDED Status: Active Protocol: Document 03/23/19 08:20 (Rec: 03/23/19 09:49 [email or web address]) Physical Therapy Treatment Exercises Exercises Ankle Pumps Gluteal Sets Quad Sets Heel Slides Education Education Provided Precautions Weight Bearing Status Post-Op Packet Safety M7 PT-IP Assessment and Plan Start: 03/22/19 16:56 Freq: NEEDED Status: Active Protocol: Document 03/23/19 08:20 (Rec: 03/23/19 09:49 [email or web address]) PT Summary Assessment and Plan Potential Rehabilitation Potential Excellent Status of Condition at Evaluation Stable Summary Impairments Pain ROM Strength Balance Bed Mobility Transfers Gait Activity Tolerance Assessment Summary Pt is a low complexity who is s/p L TKA post op day 2. Pt overall demonstrates SBA for transfers and amb with a FWW. Pt also has a very good safety awareness and understanding of her current condition. Pt will be safe to be d/c home with assistance, along with outpatient PT but she will need one more tx session prior to d/c for her adjustment of her home walker. Goals Bed Mobility Goal Independent Transfer Goal Independent Front Wheeled Walker Gait Goal Independent Front Wheel Walker Gait Distance 200 Other Goals 1 GERALDINE with L railing independently Days to Meet Goals 2 Frequency of Treatment Frequency Of Treatment Twice a Day Treatment Plan Physical Therapy Treatment Plan Bed Mobility Training Transfer Training Gait Training Therapeutic Exercise Balance Retraining Post Op Education Discharge Planning Hot or Cold Pack Neuromuscular Re-ed Other Recommendations and Next Treatment transfer, gait training as monserrat Focus assess home walker. Recommendations To Nursing Amount of Assist Needed Standby Assistance Discharge Recommendations PT Discharge Recommendations Home with Assistance Outpatient PT
[2019-03-23 11:06] VITALS: BP 104/65; PULSE 60; RESP 16; TEMP 37; O2SAT 100
--- NOTE | 2019-03-23 12:41 | CM.IDA ---
Initial DCP Assessment Note: Pt is a 63 yo female, resident of [place], now POD#1 from Lft knee surgery w/ Dr Lujan PCP: Yaya Lowery Payer: [place]/Medicaid Reviewed chart. Therapy has cleared pt for return home w/family to assist and pt has planned for home, DC order from [facility] has already been initiated this morning. Met w/pt, explained role. Pt eager to return home today and expects no barriers to safe DC home. Pt lives next door to her mother, and cares for her grand children, 18 and 8 yo who are capable of assist as needed. No needs expected from DC planning team although will remain available in case this changes today. KESHA Monroy Discharge Planning/Care Management CM Discharge Assessment Start: 03/23/19 11:48 Freq: Status: Active Protocol: Document 03/23/19 11:48 MARCUS (Rec: 03/23/19 12:41 [email or web address] [id number]) Discharge Planning Assessment Assigned Arborist KESHA Nicole DPOA/Assigned Designee Name Frances Lujan mother Contact Information [phone] Advance Directives? No: Declines further information History Provided By Patient Prior Living Arrangements House Household Members family Type of transporation used prior to Drives own vehicle admit Independent with ADL's Yes Is patient alert and oriented? Yes Barriers to Discharge No Discharge Plan Home Transportation Arrangement Family Referrals Initiated None needed Whiteboard Updated in Patient Room with Yes name and ext. # of Arborist Review Status In Process
--- NOTE | 2019-03-23 13:00 | PT.IPTN ---
Current Diagnoses Bilateral primary osteoarthritis of knee (03/22/19) Surgery Performed Operation Date: 03/22/19 12:00 Actual Procedures p Total Knee Arthroplasty(Left) - Anai Lujan MD Physical Therapy Treatment Note M2 PT-IP Current Condition Start: 03/22/19 16:56 Freq: NEEDED Status: Active Protocol: Document 03/23/19 08:20 HH (Rec: 03/23/19 09:49 HH [email or web address]) Physical Therapy Current Condition Current Condition Evaluation Date 03/23/19 Treatment Diagnosis L TKA, difficulty in walking Onset Date 03/22/19 Weight Bearing Status Weight Bearing Status Weight Bear as Tolerated M3 PT-IP Subjective Start: 03/22/19 16:56 Freq: NEEDED Status: Active Protocol: Document 03/23/19 13:00 AB (Rec: 03/23/19 13:32 AB [id number]) Subjective Physical Therapy Visit Type Type Treatment Note Visit Start Time 13:00 Visit Stop Time 13:25 Total Visit Minutes 25 Number of BOAT OUTBOARD ENGINE MECHANIC Visits 0 Physical Therapy Visit Comments Patient Comments pt agreeable to do PT Therapy Pain Assessment Pain When Pain Assessed At Rest Pain Present Pain Present Pain Reported Location Left Knee Intensity 6 Scale Used increase with mobility Pain Management Techniques Apply Cold Re-positioning Timing of Activity with Medications M4 PT-IP Mobility and Gait Start: 03/22/19 16:56 Freq: NEEDED Status: Active Protocol: Document 03/23/19 13:00 AB (Rec: 03/23/19 13:32 AB [id number]) PT-Bed Mobility Assessment Supine to Sit Supine to Sit Independent Sit to Supine Sit to Supine Independent PT-Transfer Assessment Sit to and From Stand Sit to and from Stand Standby Assistance Equipment Transfer Assistive Device Gait Belt Front Wheeled Walker Orthotic/Prosthetic Devices or Brace: No Gait Assessment Gait Gait Assistance Required: Standby Assistance Distance (Feet) 150 Able to Maintain Weight Bearing Status Yes During Gait Assistive Devices Assistive Device Gait Belt Front Wheeled Walker Orthotic/Prosthetic Devices or Brace: No Gait Deviations General Gait Pattern Antalgic Decreased Stride Length Decreased Feet Clearance Factors Limiting Gait Function Factors Limiting Gait Function Decreased Activity Tolerance Decreased Strength Limited Range of Motion Pain Poor Balance Comments Gait Comments pt completed ambulation using FWW 150+75 ft SBA and cues for even strides and decrease antalgic gait. Stair Climbing Assessment Evaluation Level of Assist On Stairs Standby Assistance Contact Guard Assistance Devices Stair Climbing Assistive Devices Front Wheel Walker Technique/Endurance Stair Climbing Direction Ascend and Descend Stair Climbing Technique Step to Step Number of Steps Climbed 1 Stair Climbing Set # Repetitions (reps) 2 Comments Stair Climbing Comments instructed pt's mom on how to assist pt. M5 PT-IP Objective Assessments Start: 03/22/19 16:56 Freq: NEEDED Status: Active Protocol: Document 03/23/19 08:20 (Rec: 03/23/19 09:49 HH [email or web address]) Orientation Orientation/Cognition Level of Alertness Alert Orientation Name Age Birthday Month Date Year Day of Week Place Situation Language Function Ability No Deficits Noted Safety Awareness Understands Safety Issues Memory Description No Deficits Noted Gross Range of Motion Upper Extremity ROM Assessment Within Functional Limits Lower Extremity ROM Assessment Left Impaired Impairments 0 - 100 degrees Strength Upper Extremity Strength Assessment Within Functional Limits Lower Extremity Strength Assessment Left Impaired Knee 3/5 Coordination Assessment Gross Coordination Gross Coordination WNL Sensation Assessment Sensation Gross Sensation WNL Muscle Tone Muscle Tone WNL Yes M6 PT-IP Treatment Start: 03/22/19 16:56 Freq: NEEDED Status: Active Protocol: Document 03/23/19 13:00 AB (Rec: 03/23/19 13:32 AB [id number]) Physical Therapy Treatment Education Education Provided Safety M7 PT-IP Assessment and Plan Start: 03/22/19 16:56 Freq: NEEDED Status: Active Protocol: Document 03/23/19 13:00 AB (Rec: 03/23/19 13:32 AB [id number]) PT Summary Assessment and Plan Potential Rehabilitation Potential Good Summary Impairments Pain ROM Strength Balance Bed Mobility Transfers Gait Activity Tolerance Progress Towards Goals Progressing Toward Goals Assessment Summary pt is doing well with mobility and plans to go home later today. pt's mother will be able to assist her at home. Goals Bed Mobility Goal Independent Transfer Goal Independent Front Wheeled Walker Gait Goal Independent Front Wheel Walker Gait Distance 200 Other Goals 1 GERALDINE with L railing independently Days to Meet Goals 2 Frequency of Treatment Frequency Of Treatment Twice a Day Treatment Plan Physical Therapy Treatment Plan Bed Mobility Training Transfer Training Gait Training Therapeutic Exercise Balance Retraining Post Op Education Discharge Planning Hot or Cold Pack Neuromuscular Re-ed Other Recommendations and Next Treatment ambulation, stair climbing Focus Recommendations To Nursing Amount of Assist Needed Standby Assistance Discharge Recommendations PT Discharge Recommendations Home with Assistance Outpatient PT
[2019-03-23 14:05] VITALS: PULSE 69; RESP 21; O2SAT 96
== END 2019-03-23 15:55 | disposition home or self-care (01) | DRG 302 ==
PROVIDERS: Admitting Provider Orthopaedic Surgery; PCP Family Medicine; Visit Provider Orthopaedic Surgery
PROC: 0SRD0JZ Replacement of Left Knee Joint with Synthetic Substitute, Open Approach (ICD-10-PCS; CPT 27447; principal; 2019-03-22 12:00)
DX: M17.12 Unilateral primary osteoarthritis, left knee (principal); I10 Essential (primary) hypertension; E78.5 Hyperlipidemia, unspecified; E03.9 Hypothyroidism, unspecified
CPT/HCPCS: 36415; 73560; 85014; 85018; 97116; 97161; 97530; C1776; C9290; J0690; J1100; J2250; J2274; J2405; J2704; J3010

== ENCOUNTER → 2019-05-06 15:43 | Outpatient (CLI) | payer OTHER, MEDICAID, SELFPAY ==
[2019-03-22 08:47] VITALS: BMI 35.1
[2019-05-06 16:40] LABS: Add Manual Diff / Slide Review NO; Basophils Absolute Auto 100 /uL (0-100); Basophils Percent Auto 1.4 % (0-2); Eosinophils Absolute Auto 300 /uL (0-450); Eosinophils Percent Auto 5.3 % (2-4); Hematocrit 31.1 % (36-46); Hemoglobin 10.5 g/dL (12.0-16.0); Lymphocytes Absolute Auto 1500 /uL (1100-4500); Lymphocytes Percent Auto 27.7 % (25-40); Mean Corpuscular HGB Conc 33.9 % (30-36); Mean Corpuscular Hemoglobin 30.9 PG (26-34); Mean Corpuscular Volume 91.2 fL (80-100); Monocytes Absolute Auto 300 /uL (0-900); Monocytes Percent Auto 5.7 % (3-14); Neutrophils Absolute Auto 3200 /uL (1500-7000); Neutrophils Percent Auto 59.9 % (50-75); Platelet Count 338 X10^3/uL (150-400); Red Blood Cell Count 3.41 X10^6/uL (4.0-5.2); Red Cell Distribution Width 14.2 % (11.6-14.8); White Blood Cell Count 5.4 X10^3/uL (4.5-11.0)
[2019-05-06 16:55] LABS: Alanine Aminotransferase 13 IU/L (9-52); Albumin 3.9 g/dL (3.5-5.0); Albumin Globulin Ratio 1.6 (1.0-2.8); Alkaline Phosphatase 86 U/L (38-126); Aspartate Aminotransferase 19 IU/L (14-36); Bilirubin Total 0.4 mg/dL (0.2-1.3); Blood Urea Nitrogen 26 mg/dL (7-17); Calcium 9.7 mg/dL (8.4-10.2); Carbon Dioxide 25 mmol/L (22-32); Chloride 104 mmol/L (98-107); Estimated Glomerular Filt Rate 56.2 mL/min (>60); Globulin 2.4 g/dL (1.7-4.1); Glucose 109 mg/dL (80-110); HEMOLYSIS < 15 (0-50); Potassium 4.1 mmol/L (3.4-5.1); Sodium 139 mmol/L (137-145); Total Protein 6.3 g/dL (6.3-8.2)
[2019-05-06 17:35] LABS: Appearance Urine UA SL CLOUDY; Bilirubin Urine UA NEGATIVE (NEGATIVE); Color Urine UA YELLOW; Glucose Urine UA NEGATIVE (Negative); Ketones Urine UA TRACE (NEGATIVE); Leukocyte Esterase Urine UA 1+ (NEGATIVE); Nitrite Urine UA NEGATIVE (Negative); Occult Blood Urine UA NEGATIVE (Negative); Protein Urine UA 1+ (Negative); Specific Gravity Urine UA 1.025 (1.000-1.035); Urobilinogen Urine UA 0.2 E.U./dL (0.2)
[2019-05-06 17:37] LABS: Creatinine Urine Random 190.4 mg/dL; Protein (Total) Urine Random 37 mg/dL (0-12); Protein Creatinine Ratio Urine 0.19 GRAM/24H
[2019-05-06 17:48] LABS: Bacteria Urine Few (2-10); Mucus Urine 1+ (Negative); RBC Urine 0-1/HPF (0-5/HPF); Squamous Epithelial Cell Urine 1-5 /HPF (0-5/HPF); Transitional Epi Cells Urine 1-5/HPF (0-5/HPF); WBC Urine 10-30/HPF (0-5/HPF)
== END ==
PROVIDERS: PCP Family Medicine; Visit Provider Specialist
DX: N03.2 Chronic nephritic syndrome with diffuse membranous glomerulonephritis (principal); R79.89 Other specified abnormal findings of blood chemistry; I10 Essential (primary) hypertension; D64.9 Anemia, unspecified
CPT/HCPCS: 36415; 80053; 81001; 82570; 84156; 85025; 86255; 86713

== ENCOUNTER → 2019-09-05 11:57 | Outpatient (CLI) | payer OTHER, MEDICAID, SELFPAY ==
[2019-03-22 08:47] VITALS: BMI 35.1
--- NOTE | 2019-09-05 | DI.MRI.S_ITS ---
PROCEDURE: MR KNEE RT WO CON INDICATIONS: PAIN IN RIGHT KNEE TECHNIQUE: Noncontrast sagittal PD fast spin echo and T2 fast spin echo with fat saturation, sagittal 3-D FLASH with fat saturation; coronal T1 spin echo and PD fast spin echo with fat saturation, and axial PD fast spin echo with fat saturation through the knee. COMPARISON: [facility], MR, MR KNEE LT WO CON, 01/03/2019, 13:58. FINDINGS: Image quality: Excellent. Menisci: There is peripheral displacement of medial meniscus bowing medial collateral ligament. Complex tear involving body and posterior horn of medial meniscus is seen extending to both superior and inferior articulating surface. Truncated appearance of body and posterior horn of medial meniscus is seen which may indicate prior partial meniscectomy versus chronic complex tear. There is no evidence of focal lateral meniscal tear. The meniscal root ligaments appear intact. Cruciate ligaments: No normal intac anterior cruciate ligament isn't visualized suggestive of chronic ACL rupture. Posterior cruciate ligament is intact. Medial structures: The medial collateral ligament appears intact. The posterior oblique ligament, semimembranosus tendon insertions, oblique popliteal ligament, and meniscocapsular junction appear intact. Visualized portions of the pes anserinus tendons appear normal. No abnormal bursal fluid. Lateral structures: The lateral collateral ligament, long and short heads of the biceps femoris tendon appear intact. The popliteus tendon appears normal; the popliteofibular ligament appears intact. The posterosuperior and anteroinferior popliteomeniscal fascicles appear intact. The arcuate and fabellofibular ligaments appear intact, on either side of the lateral inferior geniculate artery. Iliotibial band appears normal. Anterior structures: The quadriceps and patellar tendons appear intact. Patellar alignment is normal. No femoral trochlear dysplasia or ventral trochlear prominence. No edema in the infrapatellar fat pad. Bones and cartilage: Moderate to severe tricompartmental osteoarthritis and chondromalacia is noted most prominent involving medial femorotibial compartment. Marrow edema involving medial and lateral femoral tibial compartment is noted most likely representing changes related to arthritis. No fracture or dislocation. Joint space: There is moderate amount of joint fluid. Small popliteal cyst is also seen. Possible small ganglion cyst posterior to proximal tibiotalar joint adjacent to the proximal popliteus tendon is seen and may represent a small ganglion cyst. Normal appearing synovial plicae are incidentally noted. IMPRESSION: 1. 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 PCL is intact. 2. Chronic-appearing complex tear involving body and posterior horn of medial meniscus extending to both superior and inferior articulating surfaces. No gross focal lateral meniscal tear. 3. Moderate to severe tricompartmental osteoarthritis most prominent involving medial femorotibial compartment as described above. 4. Small to moderate amount of joint fluid. Small popliteal cyst and possible ganglion cyst posterior to proximal tibiofibular articulation. No gross intra-articular loose body. Dictated by: Jose F Serrano M.D. on 09/05/2019 at 15:08 Approved by: Jose F Serrano M.D. on 09/05/2019 at 15:14
[2019-09-05 14:27] LABS: Add Manual Diff / Slide Review NO; Basophils Absolute Auto 100 /uL (0-100); Basophils Percent Auto 1.6 % (0-2); Eosinophils Absolute Auto 300 /uL (0-450); Eosinophils Percent Auto 5.6 % (2-4); Hematocrit 34.5 % (36-46); Hemoglobin 11.7 g/dL (12.0-16.0); Lymphocytes Absolute Auto 1500 /uL (1100-4500); Lymphocytes Percent Auto 28.3 % (25-40); Mean Corpuscular HGB Conc 33.8 % (30-36); Mean Corpuscular Hemoglobin 30.1 PG (26-34); Monocytes Absolute Auto 300 /uL (0-900); Monocytes Percent Auto 6.3 % (3-14); Neutrophils Absolute Auto 3100 /uL (1500-7000); Neutrophils Percent Auto 58.2 % (50-75); Platelet Count 300 X10^3/uL (150-400); Red Blood Cell Count 3.87 X10^6/uL (4.0-5.2); Red Cell Distribution Width 14.1 % (11.6-14.8); White Blood Cell Count 5.4 X10^3/uL (4.5-11.0)
[2019-09-05 14:36] LABS: Appearance Urine UA CLEAR; Bilirubin Urine UA NEGATIVE (NEGATIVE); Color Urine UA YELLOW; Glucose Urine UA NEGATIVE (Negative); Ketones Urine UA NEGATIVE (NEGATIVE); Leukocyte Esterase Urine UA TRACE (NEGATIVE); Nitrite Urine UA NEGATIVE (Negative); Occult Blood Urine UA NEGATIVE (Negative); Protein Urine UA NEGATIVE (Negative); Specific Gravity Urine UA 1.015 (1.000-1.035); Urobilinogen Urine UA 0.2 E.U./dL (0.2)
[2019-09-05 14:38] LABS: pH Urine UA 5.5 (4.5-8.0)
[2019-09-05 14:39] LABS: Bacteria Urine Occasional (0-1); Culture Indicated Urine Cult Not Indicated; RBC Urine 0-1/HPF (0-5/HPF); Squamous Epithelial Cell Urine 0-1 /HPF (0-5/HPF); WBC Urine 0-1/HPF (0-5/HPF)
[2019-09-05 14:40] LABS: Alanine Aminotransferase 39 IU/L (<35); Albumin 4.1 g/dL (3.5-5.0); Albumin Globulin Ratio 1.5 (1.0-2.8); Alkaline Phosphatase 71 U/L (38-126); Aspartate Aminotransferase 39 IU/L (14-36); BUN Creatinine Ratio 23.3 (6-22); Bilirubin Total 0.5 mg/dL (0.2-1.3); Blood Urea Nitrogen 21 mg/dL (7-17); Calcium 9.8 mg/dL (8.4-10.2); Carbon Dioxide 26 mmol/L (22-32); Chloride 105 mmol/L (98-107); Cholesterol 230 mg/dL (140-199); Estimated Glomerular Filt Rate > 60.0 mL/min (>60); Globulin 2.7 g/dL (1.7-4.1); Glucose 85 mg/dL (80-110); HDL Cholesterol 90 mg/dL (40-60); HEMOLYSIS < 15 (0-50); LDL Cholesterol Calculated 116 mg/dL (<100); Sodium 137 mmol/L (137-145); Total Protein 6.8 g/dL (6.3-8.2); Triglycerides 119 mg/dL (35-150)
[2019-09-05 14:41] LABS: Hemoglobin A1C% w Est Avg Glu 5.3 % (4.0-6.0)
[2019-09-05 15:51] LABS: Creatinine Urine Random 59.1 mg/dL; Protein (Total) Urine Random 13 mg/dL (0-12); Protein Creatinine Ratio Urine 0.21 GRAM/24H
== END ==
PROVIDERS: Family Provider Specialist; PCP Family Medicine; Visit Provider Orthopaedic Surgery
DX: Z01.818 Encounter for other preprocedural examination (principal); Z01.812 Encounter for preprocedural laboratory examination; Z13.1 Encounter for screening for diabetes mellitus; M25.561 Pain in right knee; S83.231A Complex tear of medial meniscus, current injury, right knee, initial encounter; M17.11 Unilateral primary osteoarthritis, right knee; M71.21 Synovial cyst of popliteal space [Baker], right knee; N39.9 Disorder of urinary system, unspecified; R73.9 Hyperglycemia, unspecified
CPT/HCPCS: 36415; 73721; 80053; 80061; 81001; 82570; 83036; 83516; 84156; 85025; 86255

== ENCOUNTER 2019-10-18 08:52 | Day surgery (SDC) | payer OTHER, MEDICAID, SELFPAY ==
[2019-03-22 08:47] VITALS: BMI 35.1
[2019-10-04 13:33] VITALS: BMI 38.2
[2019-10-18] VITALS (15 sets, daily range): BP systolic 112–158; BP diastolic 65–89; PULSE 68–87; RESP 11–18; TEMP 35.8–37.2; O2SAT 91–100; BMI 40.3
--- NOTE | 2019-10-18 06:00 | DI.RAD.S_ITS ---
PROCEDURE: XR KNEE RT 1TO2V INDICATIONS: post op TOTAL RIGHT KNEE TECHNIQUE: 2 view(s) of the knee acquired. [facility], XR KNEE ARTHRITIC SERIES BI, 06/13/2019, 9:58. FINDINGS: Bones: Patient is status post knee joint arthroplasty. Hardware components are in expected positions. Visualized bony structures are intact. Soft tissues: Overlying postoperative changes are noted. Status post surgical changes within the overlying soft tissues are present there is a soft tissue air and edema. A surgical drainage catheter is seen overlying the anterosuperior aspect of the knee. No unexpected radiopaque foreign bodies are appreciated. IMPRESSION: Expected interval postoperative changes related to total right knee arthroplasty. Dictated by: Lucio Benson M.D. on 10/18/2019 at 14:12 Approved by: uLcio Benson M.D. on 10/18/2019 at 14:13
[2019-10-18] MEDS: LACTATED RINGERS 1,000 ML 42 ML IV ×2 (09:28→12:42)
[2019-10-18] MEDS: PREGABALIN 75 MG CAPSULE PO (09:29)
[2019-10-18] MEDS: ACETAMINOPHEN 325 MG TABLET 975 MG PO (09:29)
[2019-10-18] MEDS: CELECOXIB 200 MG CAPSULE PO (09:29)
[2019-10-18] MEDS: VANCOMYCIN 1,000 MG/200 ML PIGGYBACK 200 MG IV (10:10)
--- NOTE | 2019-10-18 11:26 | PM.PREOP ---
Pre-operative Note Interval Note History & Physical reviewed/Exam performed by Physician: Yes Changes to H&P: No
[2019-10-18] MEDS: CEFAZOLIN 2 GM/100 ML FROZ.PIGGY IV ×2 (11:28→20:04)
--- NOTE | 2019-10-18 11:29 | P.OP_ITS ---
Operative Date/Time/Diagnoses Date of procedure: 10/18/19 Time of procedure: 11:51 Pre-op diagnosis: Right knee osteoarthritis Post-op diagnosis: same Procedure & Clinicians Procedure: Right total knee arthroplasty Same procedure as scheduled: Yes Indications: The patient has had progressively worsening right knee pain with radiographic changes consistent with arthritis. Non-operative management has failed and the patient has requested total knee replacement. The risks, benefits and alternatives to surgery were discussed with the patient prior to proceeding. Risks discussed included, but were not limited to, failure to relieve pain, stiffness, infection, nerve damage, deep venous thrombosis, pulmonary embolism, stroke, coma, heart attack, permanent paralysis and , as well as the potential need for eventual revision of the prosthetic. Surgeon: Anai Lujan Damaged Freight Inspector: Kae Lambert Anesthesia Type: General and Spinal Operative Notes Findings: Severe right knee osteoarthritis, good stability Closure Type: primary Specimen(s): none sent Prosthetic devices, grafts, tissues, transplants, or devices: [facility] BCS 2 size 4 femur, size 4 tibia, +9 poly, 35 x 7.5 mm poly patella Applied: drain(s) Estimated Blood Loss (mL): 250 Blood products transfused: none Tourniquet time (min): 99 Procedure in detail: The patient was seen in the pre-operative area, where the patient identified the right knee as the operative site and this was marked with my initials. The patient received pre-operative antibiotics, and was taken to the operating room and placed on the operative table in the supine position. After satisfactory anesthesia, a multimedia teacher out was performed. The right leg was encircled with a tourniquet about the proximal thigh, and the leg was prepared from the toes to the tourniquet with ChloroPrep in the usual fashion and draped through sterile drapes. The leg was elevated and exsanguinated with Eschmark bandage and the tourniquet inflated to [250] mmHg pressure. The knee was approached through an approximately 18 cm incision centered over the patella and carried into the knee through a medial parapatellar arthrotomy. A portion of the medial and lateral meniscus was resected. Soft tissue was carefully mobilized around the patella the patella was measured with a caliper. Bone was resected from the patella and the patellar height was reconstituted with up an appropriate sized patellar component. A cover was then placed on the patella. A small amount of additional medial and lateral meniscus was resected. The visionare guide fit well to the distal femur. It looked like an appropriate distal femoral cut and the cut was made without difficulty. The rotation was assessed and the appropriate size femoral guide was placed on the distal femur and finishing cuts were made. There was no evidence of notching. The anterior, posterior and chamfer cuts were then made. The posterior osteophytes and soft tissues were then removed. The posterior capsule was injected with part of a mixture of 60 ml 0.25% Marcaine mixed with 20 ml Exparel for post operative pain control. The remainder of this mixture was injected into the capsule and subcutaneous tissues during cement curing. The tibia was prepared and the visionaire guide did not fit well to the distal tibia. I used an extramedullary alignment guide. After the proximal tibial cut I also checked the overall gap and used a long alignment guide. The rotation was assessed. The patient was placed in extension residual medial and lateral meniscus as well as any residual bone was carefully resected. 2 mm additional tibia was resected especially along the sclerotic medial bone. Hemostasis was achieved especially posteriorly. Additional local was injected into the posterior capsule. The extension gap was assessed and additional releases for gap balancing were performed as necessary. It was checked with the gap transit department clerk. The femoral component was trial was placed and the notch was finished. Trial tibial and femoral components were then placed and the knee placed through a range of motion. Range of motion was [0-130], with good stab ility throughout the range. The trials were then removed, and the tibia was finished. The bone was prepared with pulsatile lavage, and dried with a sponge. Cement was applied and the final prosthetics placed. Excess cement was removed during and after cement curing. A brief Betadine soak was performed. After confirming there was no extruded cement posteriorly, the final tibial insert was placed. The knee was copiously irrigated and the tourniquet deflated. Hemostasis was obtained with the Bovie. A drain was placed and brought out superolaterally. The capsule was closed with interrupted Vicryl suture. The subcutaneous layer was closed with barbed sutures, and the skin with a running 3-0 V-Lock suture and Surgical glue. An Aquacel Ag dressing was applied and the patient was taken to recovery having tolerated the procedure well. Complications: none Post-operative Condition: stable Disposition: Acute Care Plan for aftercare: The patient will be maintained on a standard total knee replacement protocol with weight bearing as tolerated. The patient will receive aspirin and sequential compression devices for DVT prophylaxis. The patient will be discharged home when safe for the home environment.
[2019-10-18] MEDS: TRANEXAMIC ACID 1,000 MG VIAL 1000 MG INJ ×2 (12:01→13:51)
--- NOTE | 2019-10-18 12:20 | SUR.OPER ---
Supine on padded OR bed. Pillow under head, arms secured on padded armboards <90 degree abduction. Safety belt across torso. Non-operative leg secured with tape over blanket over lower leg. Operative leg secured in DeMayo positioner. Foam padded brace at thigh of operative leg.
[2019-10-18] MEDS: BUPIVACAINE 0.25% W/ EPI 30 ML VIAL 60 ML INJ (12:30)
[2019-10-18] MEDS: SODIUM CHLORIDE IRRIG SOLUTION 250 ML, POVIDONE-IODINE SPONGE STICKS 1 APPLIC IRR (12:34)
[2019-10-18] MEDS: BUPIVACAINE LIPOSOME 266 MG/20 ML VIAL INJ (13:55)
[2019-10-18] MEDS: HYDROMORPHONE 2 MG INJ IV ×3 (14:40→15:03)
[2019-10-18] MEDS: ONDANSETRON 4 MG/2 ML INJ IV ×2 (14:54→18:39)
--- NOTE | 2019-10-18 15:36 | SUR.PHASEI ---
Patient arrived in PACU awake. Gave IV pain medication 2 to spinal had worn off. Gave antiemetic for c/o nausea. Kenneth ABEL. MARILEE's x 4.
[2019-10-18] MEDS: LACTATED RINGERS 1,000 ML 125 ML IV ×2 (16:00→23:51)
--- NOTE | 2019-10-18 16:14 | PT-IP ANOTE ---
Attempted to evaluate pt but unsuccessful since pt arrived AC unit 5 mins ago.
[2019-10-18] MEDS: IBUPROFEN 400 MG TABLET PO (20:12)
[2019-10-18] MEDS: ACETAMINOPHEN 325 MG TABLET 650 MG PO (20:12)
[2019-10-18] MEDS: LEVOTHYROXINE 100 MCG TABLET 175 MCG PO (20:13)
[2019-10-18] MEDS: ASPIRIN EC 81 MG TABLET PO (20:13)
[2019-10-18] MEDS: CITALOPRAM 20 MG TABLET PO (20:15)
[2019-10-18] MEDS: DOCUSATE 100 MG CAPSULE PO (20:15)
[2019-10-18] MEDS: OXYCODONE IR 5 MG TABLET PO (20:25)
--- NOTE | 2019-10-18 22:13 | PC.NURSE ---
Pt nausea has resolved, she has eaten a pudding and drank some juice. She was able to take her po 2100 meds. She rated her pain 7/10 and requested narcotic pain medications. She has voided 400 mLs in BSC, clear yellow with steady but painful gait. She is able to sleep. VSS, now on RA with O2 sat = >94%.
[2019-10-19] MEDS: OXYCODONE IR 5 MG TABLET PO ×4 (00:14→12:57)
[2019-10-19] MEDS: ONDANSETRON 4 MG/2 ML INJ IV (00:16)
[2019-10-19 00:41] VITALS: BP 147/87; PULSE 66; RESP 16; TEMP 36.7; O2SAT 97
[2019-10-19] MEDS: IBUPROFEN 400 MG TABLET PO ×4 (01:43→13:37)
--- NOTE | 2019-10-19 03:11 | PC.NURSE ---
Patient VSS, lung sounds clear bilaterally. Patient only complains of pain when she gets up to the bedside commode then it is a 7/10. Patient had complaint of nausea, medicated at 0014 w/ 4 mg of zofran IV. Patient CMS intact, aquacell dressing is clean/dry/intact. Patient had some drainage on jesús wrap from Hemovac site, inspected site and does not appear to be bleeding at time of assessment. Patient is able to get up w/ FWW to bedside commode w/ 1 person assist. Bed is low and locked, call light within reach, bed alarm activated, SCD's on and patient has been encouraged to use IS.
[2019-10-19] MEDS: CEFAZOLIN 2 GM/100 ML FROZ.PIGGY IV (04:11)
[2019-10-19 04:41] VITALS: BP 146/76; PULSE 66; RESP 16; TEMP 36.6; O2SAT 100
[2019-10-19 06:16] LABS: Hematocrit 30.9 % (36-46); Hemoglobin 10.1 g/dL (12.0-16.0)
[2019-10-19 07:20] VITALS: BP 135/81; PULSE 70; RESP 16; TEMP 37.1; O2SAT 99
--- NOTE | 2019-10-19 08:22 | PM.PNPO.1 ---
Subjective Subjective Date Patient Seen: 10/19/19 Time Patient Seen: 08:00 Interval history: POD#1 s/p right total knee arthroplasty with Dr. Lujan. Patient is doing well. Complains of mild pain in right knee. Voiding without difficulty or assistance. Has not mobilized with PT. Denies fever, chills, chest pain, shortness of breath Exam Vital Signs (past 8 hours): - 10/19/19 00:41 10/19/19 04:41 Temperature 98.1 F 97.8 F Pulse Rate 66 66 Respiratory Rate 16 16 Blood Pressure 147/87 H 146/76 H Pulse Oximetry 97 100 Oxygen Delivery Method Nasal Cannula Oxygen Flow Rate 0 Narrative Exam Narrative: 64 year old female is laying comfortably in bed, in no apparent distress. A&Ox3. Dressing CDI, SCDs and hemovac drain in place. Able to actively dorsiflex/plantar flex BL. Sensory function grossly intact to light touch in LE BL. Calves warm, soft, compressible, non tender to palpation bilaterally. Dorsalis pedis 2+ BL. Objective Labs Result Diagrams: 10/19/19 05:55 Labs: Laboratory Results - last 24 hr 10/19/19 05:55 Hgb 10.1 L Hct 30.9 L Assessment & Plan Post-op Postoperative Procedures: Procedures Operation Date: 10/18/19 10:45 Actual Procedures Side Surgeon p Total Knee Arthroplasty Right Anai Lujan MD Postoperative day: 1 Postoperative status: doing well Postoperative status narrative: POD #1 s/p right total knee arthroplasty Postoperative plan: discharge Postoperative plan narrative: Discharge home pending PT clearance Patient has oxycodone prescription at home ASA 81mg BID for 6 weeks for DVT prophylaxis Discontinue hemovacc drain Time Spent With Patient Time with patient: less than 15 minutes Quality VTE Deep Vein Thrombosis/Pulmonary Embolism Present on Admission: No
[2019-10-19] MEDS: DOCUSATE 100 MG CAPSULE PO (08:43)
[2019-10-19] MEDS: polyethylene glycoL 3350 17 GM POWD.PACK PO (08:43)
[2019-10-19] MEDS: ACETAMINOPHEN 325 MG TABLET 650 MG PO ×2 (08:43→13:38)
[2019-10-19] MEDS: ASPIRIN EC 81 MG TABLET PO (08:44)
[2019-10-19] MEDS: lisinopriL 20 MG TABLET PO (08:45)
--- NOTE | 2019-10-19 09:53 | PT.IIE ---
Current Diagnoses Unilateral primary osteoarthritis, right knee (10/18/19) Surgery Performed Operation Date: 10/18/19 10:45 Actual Procedures p Total Knee Arthroplasty(Right) - Anai Lujan MD Surgical History (Last Updated 10/04/19 @ 14:01 by Rashida Stratton, RN) History of arthroplasty of left knee (Acute 03/22/19) History of bilateral tubal ligation (Acute) Hx of arthroscopy of left knee (Acute ~2012) Hx of hernia repair (Acute) Hx of tonsillectomy (Acute) Medical History (Last Updated 03/08/19 @ 14:20 by Rashida Stratton, RN) Anxiety (Acute) Easy bruisability (Acute) HLD (hyperlipidemia) (Acute) HTN (hypertension) (Acute) Hypokalemia (Acute) Hypothyroidism (Acute) 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 able to make needs known Mobility and Gait Pt states she is independent with mobility at home and community without using AD. She was able to use furniture to cruise at home after her 1st knee replacement in March Activities of Daily Living and IADL's independent with ADLs and IADLs Social History Household Members family Living Arrangements House Number of Floors (Floors) One Floor Number of Stairs To Enter/Railing? 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 Her mother also lives next door and will pick her up from hospital upon DC. 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 Pt plans to have outpatient PT at [place]. M2 PT-IP Current Condition Start: 03/03/20 16:00 Freq: NEEDED Status: Active Protocol: Document 10/19/19 09:05 (Rec: 10/19/19 09:52 [email or web address]) Physical Therapy Current Condition Current Condition Evaluation Date 10/19/19 Treatment Diagnosis R TKA, difficulty in walking Onset Date 10/17/19 Weight Bearing Status Weight Bearing Status Weight Bear as Tolerated M3 PT-IP Subjective Start: 10/18/19 16:00 Freq: NEEDED Status: Active Protocol: Document 10/19/19 09:05 (Rec: 10/19/19 09:52 [email or web address]) Subjective Physical Therapy Visit Type Type Initial Evaluation Visit Start Time 09:05 Visit Stop Time 09:30 Total Visit Minutes [address] Number of FLIGHT INSPECTOR Visits 0 Physical Therapy Visit Comments Patient Comments I have pain 6/[address] Lujan told me this surgery took longer than my L knee replacement suregery. Patient Goals To return home with family today. Therapy Pain Assessment Pain When Pain Assessed During Mobility Pain Present Pain Present Pain Reported Location Left Knee Intensity 6 Scale Used Numeric (1 - 10) Description Aching Pain Behaviors Facial Grimacing Pain Management Techniques Apply Cold,Timing of Activity with Medications M4 PT-IP Mobility and Gait Start: 10/18/19 16:00 Freq: NEEDED Status: Active Protocol: Document 10/19/19 09:05 (Rec: 10/19/19 09:52 [email or web address]) PT-Bed Mobility Assessment Supine to Sit Supine to Sit Standby Assistance Sit to Supine Sit to Supine Standby Assistance Scooting Scooting to Edge of Bed Standby Assistance PT-Transfer Assessment Sit to and From Stand Sit to and from Stand Standby Assistance,Use of Upper Extremities Equipment Transfer Assistive Device Gait Belt,Front Wheeled Walker Orthotic/Prosthetic Devices or Brace: No Transfers Transfer Destination Bed,Chair Transfer Technique amb with FWW Transfer Ability Level of Assist Contact Guard Assistance,Use of Upper Extremities Comments Mobility Comments Pt was in bed upon PT arrival. Stated pain at 4/10 at rest. She then completed supine to long with without using bedrails and pivot to L side EOB. Performed seated knee flexion and extension for a minute then completed sit to stand with CGA FWW. Practiced lateral weight shift and pt reports increased pain to 6/10 . Pt then proceeded to mobilize in the hallway but there's a leakage from her hemovac and returned pt to bed . Pt was able to complete sit to supine with SBA. RN Yasemin came in to remove hemovac. Pt then requested to use bathroom and able to get to EOB with long sit SBA. She was able to use step to gait but slowly to amb and turn for toilet transfers. Pt performed self care in standing after with FWW with supervision. She then amb to hallway again with CGA . Pt reports pain persists and she gradually used her UEs on FWW during amb due to increased pain. Pt amb ~ 70 60 ft in total and returned to bedside chair with CGA. Call light placed within reach. Gait Assessment Gait Gait Assistance Required: Contact Guard Assist Distance (Feet) 60 Able to Maintain Weight Bearing Status Yes During Gait Assistive Devices Assistive Device Gait Belt,Front Wheeled Walker Orthotic/Prosthetic Devices or Brace: No Gait Deviations General Gait Pattern Antalgic,Decreased Stride Length,Decreased Feet Clearance,Step-to Gait Factors Limiting Gait Function Factors Limiting Gait Function Decreased Activity Tolerance, Decreased Strength,Limited Range of Motion,Pain,Poor Balance Comments Gait Comments see mobility comments Stair Climbing Assessment Evaluation Level of Assist On Stairs Contact Guard Assistance Devices Stair Climbing Assistive Devices Left Railing Technique/Endurance Stair Climbing Direction Ascend and Descend Stair Climbing Technique Step to Step Number of Steps Climbed 1 Query Text: Stair Climbing Set # Repetitions (reps) 2 Comments Stair Climbing Comments lead with L to ascend and with R to descend PT-Balance Assessment Sitting Balance and Reactions Static Sitting Balance Ability Normal Dynamic Sitting Balance Ability Normal Standing Balance and Reactions Static Standing Balance Ability Normal Dynamic Standing Balance Ability Good Device Used FWW M5 PT-IP Objective Assessments Start: 10/18/19 16:00 Freq: NEEDED Status: Active Protocol: Document 10/19/19 09:05 (Rec: 10/19/19 09:52 [email or web address]) Orientation Orientation/Cognition Level of Alertness Alert Orientation Name,Age,Birthday,Month,Date, Year,Day of Week,Place, Situation Language Function Ability No Deficits Noted Safety Awareness Understands Safety Issues Memory Description No Deficits Noted Gross Range of Motion Upper Extremity ROM Assessment Within Functional Limits Lower Extremity ROM Assessment Right Impaired Impairments L knee AROM 10-85 degrees Strength Upper Extremity Strength Assessment Within Functional Limits Lower Extremity Strength Assessment Right Impaired Hip 5/5 Knee 4-/5 Ankle 5/5 Coordination Assessment Gross Coordination Gross Coordination WNL Sensation Assessment Sensation Gross Sensation WNL Muscle Tone Muscle Tone WNL Yes M6 PT-IP Treatment Start: 10/18/19 16:00 Freq: NEEDED Status: Active Protocol: Document 10/19/19 09:05 (Rec: 10/19/19 09:52 [email or web address]) Physical Therapy Treatment Exercises Exercises Quad Sets,Heel Slides,Straight Leg Raises Education Education Provided Precautions,Weight Bearing Status,Post-Op Packet,Safety M7 PT-IP Assessment and Plan Start: 10/18/19 16:00 Freq: NEEDED Status: Active Protocol: Document 10/19/19 09:05 (Rec: 10/19/19 09:52 [email or web address]) PT Summary Assessment and Plan Potential Rehabilitation Potential Excellent Status of Condition at Evaluation Stable Summary Impairments Pain,ROM,Strength,Balance,Bed Mobility,Transfers,Gait, Activity Tolerance Assessment Summary This is a low complexity evaluation for this 64 yo pt s /p POD2 RTKA. PLOF: Pt had a L TKA in and was able to return home with family assistance. 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 CLOF: Pt needed CGA/SBA for all transfers and amb with FWW. She was able to amb ~60-70 ft and climb 1 step with L rail safely. However, her primary c /o is knee pain 01/24 which forced her to show antalgic gait and use UEs to WB through walker. Pt states she think she is ready to go home with family assistance but her significant pain is the limiting factor that she might benefit another tx session in the afternoon prior to d/c. Goals Bed Mobility Goal Standby Assistance Transfer Goal Standby Assistance,Front Wheeled Walker Gait Goal Standby Assistance,Front Wheel Walker Gait Distance 100 Other Goals 1 stevan with L rail Days to Meet Goals 2 Frequency of Treatment Frequency Of Treatment Twice a Day Treatment Plan Physical Therapy Treatment Plan Bed Mobility Training,Transfer Training,Gait Training, Therapeutic Exercise,Balance Retraining,Post Op Education, Discharge Planning,Hot or Cold Pack,Neuromuscular Re-ed Other Recommendations and Next Treatment mobility as monserrat Focus knee AROM, transfer and stair climbing Recommendations To Nursing Amount of Assist Needed 1 Person Assist Discharge Recommendations PT Discharge Recommendations Home with Assistance, Outpatient PT Transportation Needs at Discharge Private Vehicle
[2019-10-19] MEDS: ONDANSETRON 4 MG ODT PO ×2 (09:57→13:38)
--- NOTE | 2019-10-19 10:08 | PC.NURSE ---
Addendum entered by Yasemin Goetz R.N. 10/19/19 13:58: DC - pt cleared by phys therapy, ready for discharge, states pain is adequately managed with oxycodone, has script at home, called vistaril to [facility], given tylenol early with zofran and ibuprofen for transport home, iv dc'd, belongings gathered including cell phone, headphones, electronic heat seal operator, glasses, clothing, shoes, transfer to and escorted to mom's car by shelter case manager. Addendum entered by Yasemin Goetz R.N. 10/19/19 12:59: MS/PAIN - phys therapy in now after lunch and reports discomfort 7 on scale 0/10 when mobilizing, given 5mg po oxycodone. Addendum entered by Yasemin Goetz R.N. 10/19/19 12:26: DC/PAIN - discussed medications after lunch, [place] [address], given prioroty board, will admin medications prior to transfer. Addendum entered by Yasemin Goetz R.N. 10/19/19 11:06: PAIN/NAUSEA - r knee discomfort and nausea improved after earlier medications, after up chair, assist x 1 person w/fww back to bed to rest. Original Note: AM NOTE - pt is alert, states r knee pain 3-4 at rest, incr to 7 when mobilizing, no nausea at breakfast, after meal given 5mg oxycodone with milk and crackers, ortho PA in and jesús wrap removed, some leakage at hemovac site, suction released and dc'd w/o difficulty, 2x2 w/opsite over, discussed constipation and narcotics, given miralax this am with stool softener, after meal, phys therapy in and pt states pain at 7, mild onset nausea after mobilization, ret to chair, added 4mg sl zofran.
[2019-10-19 11:35] VITALS: BP 121/67; PULSE 80; RESP 18; TEMP 37.4; O2SAT 99
--- NOTE | 2019-10-19 13:11 | PT.IPTN ---
Current Diagnoses Unilateral primary osteoarthritis, right knee (10/18/19) Surgery Performed Operation Date: 10/18/19 10:45 Actual Procedures p Total Knee Arthroplasty(Right) - Anai Lujan MD Physical Therapy Treatment Note M2 PT-IP Current Condition Start: 10/18/19 16:00 Freq: NEEDED Status: Active Protocol: Document 10/19/19 09:05 HH (Rec: 10/19/19 09:52 [id number]) Physical Therapy Current Condition Current Condition Evaluation Date 10/19/19 Treatment Diagnosis R TKA, difficulty in walking Onset Date 10/17/19 Weight Bearing Status Weight Bearing Status Weight Bear as Tolerated M3 PT-IP Subjective Start: 10/18/19 16:00 Freq: NEEDED Status: Active Protocol: Document 10/19/19 12:50 SP (Rec: 10/19/19 13:43 SP [id number]) Subjective Physical Therapy Visit Type Type Treatment Note Visit Start Time 12:50 Visit Stop Time 13:11 Total Visit Minutes 21 Number of SWEEPER DRIVER Visits 1 Physical Therapy Visit Comments Patient Comments I am having 8/10 pain in R knee but am willing to get up and move around on my feet before leave. Patient Goals To return home with family today. Patient Questionnaires Patient Questionnaires Mother observed treatment. Therapy Pain Assessment Pain When Pain Assessed At Rest Pain Present Pain Present Pain Reported Location Left Knee Intensity 8 Scale Used Numeric (1 - 10) Description Aching Pain Behaviors Facial Grimacing Pain Management Techniques Apply Cold,Timing of Activity with Medications M4 PT-IP Mobility and Gait Start: 10/18/19 16:00 Freq: NEEDED Status: Active Protocol: Document 10/19/19 12:50 SP (Rec: 10/19/19 13:43 SP [id number]) PT-Bed Mobility Assessment Supine to Sit Supine to Sit Standby Assistance Sit to Supine Sit to Supine Standby Assistance Scooting Scooting to Edge of Bed Standby Assistance PT-Transfer Assessment Sit to and From Stand Sit to and from Stand Standby Assistance,Use of Upper Extremities Equipment Transfer Assistive Device Gait Belt,Front Wheeled Walker Orthotic/Prosthetic Devices or Brace: No Transfers Transfer Destination Bed,Chair Transfer Technique amb with FWW Transfer Ability Level of Assist Standby Assistance,Use of Upper Extremities Comments Mobility Comments Pt was in bed when arrived. Pt reported 8/10 R knee pain at rest and decreased to 7/10 during mobility. Supine <> sitting SBA with ability to reposition RLE itself with no UE support. Sit <> stand SBA withuse of BUE with proper hand placement and noted RLE out in front. Step pivot transfer bed <> chair using FWW SBA to Mod I, occasional cuing for keeping FWW in front fully until positioned to sit to allow UE assist and tolerance/ comfort with LE pain on FWW with understanding and follow through. Good slow descent withnoted RLE positioning out in front. Pt rested in chair for few minutes then transferred back to bed using FWW, SBA- Mod I. Pt was laying in bed with mother in room when left. SWEEPER DRIVER provided refreshed cold pack for assist paincontrol for ride home and donned before left. Call light and all needs inreach when left. Gait Assessment Gait Gait Assistance Required: Contact Guard Assist Distance (Feet) 120 Able to Maintain Weight Bearing Status Yes During Gait Assistive Devices Assistive Device Gait Belt,Front Wheeled Walker Orthotic/Prosthetic Devices or Brace: No Gait Deviations General Gait Pattern Antalgic,Decreased Stride Length,Decreased Feet Clearance Factors Limiting Gait Function Factors Limiting Gait Function Decreased Activity Tolerance, Decreased Strength,Limited Range of Motion,Pain Comments Gait Comments Pt was ableto ambulate further distance using FWW for support with decreased UE WB onFWW. Cued x1 for RLE heel toe and knee flexion during gait for normal gait phases with good self corrections. SBA provided. Stair Climbing Assessment Evaluation Level of Assist On Stairs Standby Assistance Devices Stair Climbing Assistive Devices Front Wheel Walker,Left Railing Technique/Endurance Stair Climbing Direction Ascend and Descend Stair Climbing Technique Step to Step Number of Steps Climbed 1 Stair Climbing Set # Repetitions (reps) 1 Comments Stair Climbing Comments Pt was able to complete 1 step forward/backward bottom step using LHR only 1UE or 2 suggested if wants BUE support sBA, stable. Pt was also able to ascend/descend 1 plateform step using FWW sBA to assimulate home set up outside or can use 1 HR on L with patient reporting easier using FWW because can use BUE support. PT-Balance Assessment Sitting Balance and Reactions Static Sitting Balance Ability Normal Dynamic Sitting Balance Ability Normal Standing Balance and Reactions Static Standing Balance Ability Normal Dynamic Standing Balance Ability Good Device Used FWW M5 PT-IP Objective Assessments Start: 10/18/19 16:00 Freq: NEEDED Status: Active Protocol: Document 10/19/19 09:05 (Rec: 10/19/19 09:52 [id number]) Orientation Orientation/Cognition Level of Alertness Alert Orientation Name,Age,Birthday,Month,Date, Year,Day of Week,Place, Situation Language Function Ability No Deficits Noted Safety Awareness Understands Safety Issues Memory Description No Deficits Noted Gross Range of Motion Upper Extremity ROM Assessment Within Functional Limits Lower Extremity ROM Assessment Right Impaired Impairments L knee AROM 10-85 degrees Strength Upper Extremity Strength Assessment Within Functional Limits Lower Extremity Strength Assessment Right Impaired Hip 5/5 Knee 4-/5 Ankle 5/5 Coordination Assessment Gross Coordination Gross Coordination WNL Sensation Assessment Sensation Gross Sensation WNL Muscle Tone Muscle Tone WNL Yes M6 PT-IP Treatment Start: 10/18/19 16:00 Freq: NEEDED Status: Active Protocol: Document 10/19/19 12:50 SP (Rec: 10/19/19 13:43 SP [id number]) Physical Therapy Treatment Exercises Exercises Ankle Pumps,Quad Sets,Heel Slides,Straight Leg Raises, Passive Knee Extension Hang, Seated Knee Flexion/Extension Knee ROM Measurement 90-95deg seated R knee flex/ ext slide on floor Education Education Provided Precautions,Weight Bearing Status,Post-Op Packet,Safety M7 PT-IP Assessment and Plan Start: 10/18/19 16:00 Freq: NEEDED Status: Active Protocol: Document 10/19/19 12:50 SP (Rec: 10/19/19 13:43 SP [id number]) PT Summary Assessment and Plan Potential Rehabilitation Potential Excellent Status of Condition at Evaluation Stable Summary Impairments Pain,ROM,Strength,Balance,Bed Mobility,Transfers,Gait, Activity Tolerance Assessment Summary Pt was able to complete supine <> sitting, sit to stand transfers SBA- Mod I and amb with FWW SBA with cuing x1 for strive for heel toe gait with knee flexion toward normal patterning with good demonstration. She was able to amb ~120 ft and climb 1 step with L rail and 1 plateform step usign FWW SBA safely. However, her primary c/o is knee pain 7-8/10 which forced her to show antalgic gait and use UEs to WB through walker. Pt demonstrated improvement mobility pm session and is able to return home with family to assist her when medically stable with recommendation of outpatient PT, already scheduled for next Tues at [facility]. Goals Bed Mobility Goal Standby Assistance Transfer Goal Standby Assistance,Front Wheeled Walker Gait Goal Standby Assistance,Front Wheel Walker Gait Distance 100 Other Goals 1 stevan with L rail Days to Meet Goals 2 Frequency of Treatment Frequency Of Treatment Twice a Day Treatment Plan Physical Therapy Treatment Plan Bed Mobility Training,Transfer Training,Gait Training, Therapeutic Exercise,Balance Retraining,Post Op Education, Discharge Planning,Hot or Cold Pack,Neuromuscular Re-ed Other Recommendations and Next Treatment Recommended patient continue Focus post op exercises and ambulating every hour at home until follow up with PT, application of ice and elevation to assist swelling and pain control. Recommendations To Nursing Amount of Assist Needed 1 Person Assist Discharge Recommendations PT Discharge Recommendations Home with Assistance, Outpatient PT Transportation Needs at Discharge Private Vehicle
== END 2019-10-19 14:00 | disposition home or self-care (01) ==
LOC: OR 08:52 → AC 08:54
PROVIDERS: Family Provider Specialist; PCP Family Medicine; Referring Provider Orthopaedic Surgery; Visit Provider Orthopaedic Surgery
PROC: 0SRC0JZ Replacement of Right Knee Joint with Synthetic Substitute, Open Approach (ICD-10-PCS; CPT 27447; principal; 2019-10-18 10:45)
DX: M17.11 Unilateral primary osteoarthritis, right knee (principal)
CPT/HCPCS: 27447; 36415; 73560; 85014; 85018; 97116; 97161; C1776; C9290; J0690; J1170; J2250; J2405; J2704; J3010

== ENCOUNTER → 2020-02-09 11:53 | Outpatient (CLI) | payer OTHER, MEDICAID, SELFPAY ==
[2019-10-18 16:23] VITALS: BMI 40.3
[2020-02-09 12:07] LABS: Bacteria Urine None Seen; RBC Urine None Seen (0-5/HPF); WBC Urine None Seen (0-5/HPF)
[2020-02-09 12:34] LABS: Appearance Urine UA CLEAR; Bilirubin Urine UA NEGATIVE (NEGATIVE); Color Urine UA YELLOW; Glucose Urine UA NEGATIVE (Negative); Ketones Urine UA NEGATIVE (NEGATIVE); Leukocyte Esterase Urine UA NEGATIVE (NEGATIVE); Nitrite Urine UA NEGATIVE (Negative); Occult Blood Urine UA NEGATIVE (Negative); Protein Urine UA NEGATIVE (Negative); Urobilinogen Urine UA 0.2 E.U./dL (0.2)
[2020-02-09 12:37] LABS: Add Manual Diff / Slide Review NO; Basophils Absolute Auto 100 /uL (0-100); Basophils Percent Auto 1.1 % (0-2); Eosinophils Absolute Auto 400 /uL (0-450); Eosinophils Percent Auto 5.1 % (2-4); Hematocrit 36.9 % (36-46); Hemoglobin 12.1 g/dL (12.0-16.0); Lymphocytes Absolute Auto 1900 /uL (1100-4500); Lymphocytes Percent Auto 24.7 % (25-40); Mean Corpuscular HGB Conc 32.8 % (30-36); Mean Corpuscular Hemoglobin 29.8 PG (26-34); Monocytes Absolute Auto 400 /uL (0-900); Monocytes Percent Auto 5.5 % (3-14); Neutrophils Absolute Auto 4800 /uL (1500-7000); Neutrophils Percent Auto 63.6 % (50-75); Platelet Count 336 X10^3/uL (150-400); Red Blood Cell Count 4.06 X10^6/uL (4.0-5.2); Red Cell Distribution Width 14.1 % (11.6-14.8); White Blood Cell Count 7.5 X10^3/uL (4.5-11.0)
[2020-02-09 12:45] LABS: Culture Indicated Urine Cult Not Indicated; Urine Comments Microscopic Normal
[2020-02-09 12:48] LABS: Alanine Aminotransferase 16 IU/L (<35); Albumin 4.2 g/dL (3.5-5.0); Albumin Globulin Ratio 1.6 (1.0-2.8); Alkaline Phosphatase 79 U/L (38-126); Aspartate Aminotransferase 23 IU/L (14-36); BUN Creatinine Ratio 23.2 (6-22); Bilirubin Total 0.5 mg/dL (0.2-1.3); Blood Urea Nitrogen 23 mg/dL (7-17); Carbon Dioxide 27 mmol/L (22-32); Chloride 106 mmol/L (98-107); Cholesterol 247 mg/dL (140-199); Estimated Glomerular Filt Rate 56.7 mL/min (>60); Globulin 2.7 g/dL (1.7-4.1); Glucose 91 mg/dL (80-110); HDL Cholesterol 90 mg/dL (40-60); HEMOLYSIS < 15 (0-50); LDL Cholesterol Calculated 135 mg/dL (<100); Potassium 3.8 mmol/L (3.4-5.1); Sodium 137 mmol/L (137-145); Total Protein 6.9 g/dL (6.3-8.2); Triglycerides 111 mg/dL (35-150)
[2020-02-09 12:52] LABS: Hemoglobin A1C% w Est Avg Glu 5.3 % (4.0-6.0)
[2020-02-09 16:16] LABS: Creatinine Urine Random 104.2 mg/dL; Protein (Total) Urine Random 8 mg/dL (0-12); Protein Creatinine Ratio Urine 0.07 GRAM/24H
== END ==
PROVIDERS: Family Provider Specialist; PCP Family Medicine; Referring Provider Specialist; Visit Provider Specialist
DX: N03.2 Chronic nephritic syndrome with diffuse membranous glomerulonephritis (principal); N04.9 Nephrotic syndrome with unspecified morphologic changes; I10 Essential (primary) hypertension
CPT/HCPCS: 36415; 80053; 80061; 81001; 82570; 83036; 84156; 85025

== ENCOUNTER → 2022-07-03 15:06 | Outpatient (CLI) | payer MEDICARE, SELFPAY ==
[2021-07-16 11:57] VITALS: BMI 40.3
--- NOTE | 2022-07-03 | DI.MG.S_ITS ---
BILATERAL DIGITAL SCREENING MAMMOGRAM 3D/2D WITH CAD: 07/03/2022 CLINICAL: Routine screening. Family history of breast cancer. Comparison is made to exams dated: 08/30/2018 mammogram, 08/26/2013 mammogram, and 07/23/2011 mammogram - [facility]. Both breasts are almost entirely fatty (category a/<25% glandular tissue). Current study was also evaluated with a Computer Aided Detection (CAD) system. There are benign calcifications in both breasts. There also is a biopsy clip in the right breast. No significant masses, calcifications, or other findings are seen in either breast. There has been no significant interval change. IMPRESSION: BENIGN There is no mammographic evidence of malignancy. A 1 year screening mammogram is recommended. Based on the Tyrer Cuzick model (a risk assessment model) the patient's lifetime risk is 5.0% and her 10 year risk is 2.4%. According to the ACR, ACS, and NCCN guidelines, an annual breast MRI exam along with mammogram is recommended if the patient's lifetime risk is 20% or greater. This exam was interpreted at Station ID: [id number]. NOTE: For mammograms, a report in lay terms will be sent to the patient. Approximately 15% of breast malignancies will not be visualized mammographically. In the management of a palpable breast mass, a negative mammogram must not discourage biopsy of a clinically suspicious lesion. Electronically Signed By: Rico barnes/salvador:07/04/2022 10:05:46 letter sent: Normal Exam ACR BI-RADS Category 2: Benign Finding(s) [id number]
== END ==
PROVIDERS: Family Provider Specialist; PCP Family Medicine; Referring Provider Family Medicine; Visit Provider Family Medicine
DX: Z12.31 Encounter for screening mammogram for malignant neoplasm of breast (principal); Z80.3 Family history of malignant neoplasm of breast
CPT/HCPCS: 77063; 77067

== ENCOUNTER → 2023-01-05 10:47 | Outpatient (CLI) | payer MEDICARE, SELFPAY ==
[2021-07-16 11:57] VITALS: BMI 40.3
--- NOTE | 2023-01-05 | DI.CT.S_ITS ---
PROCEDURE: CT ABDOMEN PELVIS WO CON INDICATIONS: Ventral hernia without obstruction or gangrene TECHNIQUE: Axial sections were acquired from the lung bases to the pubic symphysis. Coronal and sagittal reformats were performed. For radiation dose reduction, the following was used: automated exposure control, adjustment of mA and/or kV according to patient size. COMPARISON: None. FINDINGS: Image quality: Excellent. Lung bases: Unremarkable. Heart: No significant findings. URINARY: Right Kidney: No stones or hydronephrosis. Right Ureter: No hydroureter. Left Kidney: No stones or hydronephrosis. Left Ureter: No hydroureter. Bladder: Normal wall thickness. No stones. ABDOMEN: Liver: Unremarkable. Gallbladder: Unremarkable. Biliary ducts: Unremarkable. Pancreas: Unremarkable. Spleen: Unremarkable. Adrenal Glands: Unremarkable. Stomach and Bowel: Stomach, small bowel loops, and colon are unremarkable. Colonic diverticulosis without evidence of diverticulitis. Peritoneum: No abnormal intraperitoneal fluid. No free air. Ventral Wall: Bilobed, large ventral wall hernia containing loops of nonobstructed small and large bowel. The neck measures 5.7 by 6.4 cm (transverse by cc). Abdominal Nodes: No enlarged retroperitoneal or mesenteric lymph nodes. Vessels: Aorta and inferior vena cava are normal in size. PELVIS: Pelvic Organs: Unremarkable. Pelvic Nodes: Unremarkable. Miscellaneous: No inguinal hernias are seen. Bones: Unremarkable. IMPRESSION: Bilobed, large ventral wall hernia containing loops of nonobstructed small and large bowel. The neck measures 5.7 by 6.4 cm (transverse by cc). Dictated by: Ken Ochoa M.D. on 01/05/2023 at 12:40 Approved by: Ken Ochoa M.D. on 01/05/2023 at 12:42
== END ==
PROVIDERS: Family Provider Specialist; PCP Family Medicine; Referring Provider Surgery; Visit Provider Surgery
DX: K43.9 Ventral hernia without obstruction or gangrene (principal)
CPT/HCPCS: 74176